=== PATIENT | male | born 1945 | race Caucasian/White ===

== ENCOUNTER 2017-03-06 00:16 | Emergency (ER) | payer BC ==
[~2017-03-06] VITALS: Ht 162.6 cm; Wt 50.0 kg
[~2017-03-06 00:16] MED LIST: CARB200T PO; PRIM250T33 PO
[2017-03-06] MEDS ORDERED: IPRATROPIUM BROMIDE (0.02%) 0.5MG/2.5ML NEB HHN STA (01:20)
[2017-03-06] MEDS ORDERED: SODIUM CHLORIDE 0.9% 1,000 ML IV ONE (01:20)
[2017-03-06] MEDS ORDERED: METHYLPREDNISOLONE SOD SUCC 125 MG/2 ML VIAL IV STA (01:20)
[2017-03-06] MEDS ORDERED: ALBUTEROL (0.083%) 2.5MG/3ML NEB HHN SCH (01:30)
[2017-03-06 01:36] LABS: BASOPHILS % 0.5 % (0.0-2.0); EOSINOPHILS % 1.8 % (0.0-5.0); HEMATOCRIT. 36.5 % (42.0-52.0); HEMOGLOBIN. 12.7 g/dL (14.0-18.0); LYMPHOCYTES % 26.7 % (20.0-50.0); MEAN CORPUSCULAR HEMOGLOBIN 31.9 pg (28.0-32.0); MEAN CORPUSCULAR VOLUME 91.5 fL (80.0-94.0); MEAN PLATELET VOLUME 7.7 fl (7.4-10.4); MONOCYTES % 8.9 % (2.0-8.0); NEUTROPHILS % 62.1 % (40.0-76.0); PLATELET 152 x1000/uL (130-400); RED BLOOD CELL COUNT 3.99 mill/uL (4.7-6.1); RED CELL DISTRIBUTION WIDTH 15.1 % (11.6-14.6)
[2017-03-06 01:51] LABS: CARBON DIOXIDE 28 mEq/L (21-32); CHLORIDE 105 mEq/L (98-107); TROPONIN I 0.02 ng/mL (0.00-0.04)
[2017-03-06 03:55] VITALS: BP 122/75
== END 2017-03-06 04:05 | disposition home or self-care (01) ==
LOC: ER 00:16
DX: J44.9 Chronic obstructive pulmonary disease, unspecified (principal); I10 Essential (primary) hypertension; R06.00 Dyspnea, unspecified
CPT/HCPCS: 36415; 71010; 80053; 83880; 84484; 85025; 93005; 94640; 96361; 96374; 99285; J2930; J7030; J7611; Z7610

== ENCOUNTER 2017-05-11 16:14 | Emergency (ER) | payer BC ==
[~2017-05-11] VITALS: Ht 167.6 cm; Wt 59.0 kg
[2017-05-11] MEDS ORDERED: SODIUM CHLORIDE 0.9% 1,000 ML IV ONE (17:17)
[2017-05-11] MEDS ORDERED: KETOROLAC 30MG/ML VIAL IV STA (17:17)
[2017-05-11 18:13] LABS: BASOPHILS % 0.5 % (0.0-2.0); EOSINOPHILS % 2.1 % (0.0-5.0); HEMATOCRIT. 41.4 % (42.0-52.0); LYMPHOCYTES % 12.3 % (20.0-50.0); MEAN CORPUSCULAR VOLUME 91.8 fL (80.0-94.0); MEAN PLATELET VOLUME 8.5 fl (7.4-10.4); MONOCYTES % 9.2 % (2.0-8.0); NEUTROPHILS % 75.9 % (40.0-76.0); PLATELET 209 x1000/uL (130-400); RED BLOOD CELL COUNT 4.51 mill/uL (4.7-6.1); RED CELL DISTRIBUTION WIDTH 14.7 % (11.6-14.6)
[2017-05-11 18:18] LABS: CHLORIDE 98 mEq/L (98-107)
[2017-05-11 18:20] LABS: INR 1.1; PROTHROMBIN TIME 11.2 sec (9.4-11.6)
[2017-05-11 18:24] VITALS: BP 134/67
[2017-05-11 18:26] LABS: CARBON DIOXIDE 33 mEq/L (21-32)
== END 2017-05-11 21:02 | disposition home or self-care (01) ==
LOC: ER 16:14
DX: R10.9 Unspecified abdominal pain (principal); J44.9 Chronic obstructive pulmonary disease, unspecified; R56.9 Unspecified convulsions; J98.11 Atelectasis; I10 Essential (primary) hypertension
CPT/HCPCS: 36415; 71010; 74176; 80053; 83690; 85025; 85610; 93005; 96361; 96374; 99285; J1885; J7030; Z7610

== ENCOUNTER 2017-07-20 08:36 | Emergency (ER) | payer BC ==
[~2017-07-20] VITALS: Ht 172.7 cm; Wt 55.5 kg
[2017-07-20] MEDS ORDERED: ONDANSETRON HCL 4MG/2ML VIAL IV STA (09:10)
[2017-07-20] MEDS ORDERED: SODIUM CHLORIDE 0.9% 500 ML IV ONE (09:10)
[2017-07-20] MEDS ORDERED: MORPHINE SULFATE 4 MG/ML CPJ (NOT FOR IM USE) IV STA (09:10)
[2017-07-20] MEDS ORDERED: MORPHINE SULFATE 10 MG/ML CPJ IV STA (09:18)
[2017-07-20 09:19] LABS: BASOPHILS % 0.8 % (0.0-2.0); HEMATOCRIT. 40.5 % (42.0-52.0); HEMOGLOBIN. 13.9 g/dL (14.0-18.0); LYMPHOCYTES % 21.1 % (20.0-50.0); MEAN CORPUSCULAR VOLUME 92.9 fL (80.0-94.0); MEAN PLATELET VOLUME 8.3 fl (7.4-10.4); MONOCYTES % 11.3 % (2.0-8.0); NEUTROPHILS % 63.8 % (40.0-76.0); PLATELET 236 x1000/uL (130-400); RED BLOOD CELL COUNT 4.36 mill/uL (4.7-6.1); RED CELL DISTRIBUTION WIDTH 14.5 % (11.6-14.6)
[2017-07-20 09:35] LABS: INR 1.1; PROTHROMBIN TIME 11.3 sec (9.4-11.6)
[2017-07-20 09:39] LABS: CARBON DIOXIDE 32 mEq/L (21-32); CHLORIDE 99 mEq/L (98-107); TROPONIN I < 0.02 ng/mL (0.00-0.04)
[2017-07-20] MEDS ORDERED: ALBUTEROL (0.083%) 2.5MG/3ML NEB HHN STA (10:44)
[2017-07-20] MEDS ORDERED: IPRATROPIUM BROMIDE (0.02%) 0.5MG/2.5ML NEB HHN STA (10:44)
[2017-07-20] MEDS ORDERED: METHYLPREDNISOLONE SOD SUCC 125 MG/2 ML VIAL IV STA (10:44)
[2017-07-20] MEDS ORDERED: IOHEXOL-300 100 ML BOTTLE ONE (13:00)
[2017-07-20 14:05] VITALS: BP 107/59
== END 2017-07-20 14:13 | disposition home or self-care (01) ==
LOC: ER 08:52
DX: J43.9 Emphysema, unspecified (principal); R10.33 Periumbilical pain; G40.909 Epilepsy, unspecified, not intractable, without status epilepticus; I44.7 Left bundle-branch block, unspecified; Z99.81 Dependence on supplemental oxygen
CPT/HCPCS: 36415; 71010; 74177; 80053; 83690; 83880; 84484; 85025; 85610; 93005; 94644; 96361; 96374; 96375; 99285; J2270; J2405; J2930; J7040; J7611; Q9967; Z7610; J7030

== ENCOUNTER 2017-09-28 13:47 | Emergency (ER) | payer BC, MEDICAID ==
[~2017-09-28] VITALS: Ht 167.6 cm; Wt 55.5 kg
[2017-09-28] MEDS ORDERED: IPRATROPIUM/ALBUTEROL 0.5-3(2.5)MG/3ML NEB HHN ONE (15:30)
[2017-09-28 15:41] LABS: CHLORIDE 101 mEq/L (98-107)
[2017-09-28 15:43] LABS: INR 1.1; PARTIAL THROMBOPLASTIN TIME 28.2 sec (23.4-31.0); PROTHROMBIN TIME 11.3 sec (9.4-11.6)
[2017-09-28 15:44] LABS: BASOPHILS % 0.7 % (0.0-2.0); EOSINOPHILS % 1.4 % (0.0-5.0); HEMATOCRIT. 43.6 % (42.0-52.0); HEMOGLOBIN. 14.6 g/dL (14.0-18.0); LYMPHOCYTES % 19.1 % (20.0-50.0); MEAN CORPUSCULAR HEMOGLOBIN 30.6 pg (28.0-32.0); MEAN CORPUSCULAR VOLUME 91.3 fL (80.0-94.0); MONOCYTES % 11.5 % (2.0-8.0); NEUTROPHILS % 67.3 % (40.0-76.0); PLATELET 198 x1000/uL (130-400); RED BLOOD CELL COUNT 4.78 mill/uL (4.7-6.1); RED CELL DISTRIBUTION WIDTH 14.8 % (11.6-14.6)
[2017-09-28 15:51] LABS: CARBON DIOXIDE 30 mEq/L (21-32)
[2017-09-28 15:57] LABS: CLARITY URINE CLEAR (CLEAR); COLOR URINE DARK YELLOW (YELLOW); KETONES URINE 1+ (NEGATIVE); LEUKOCYTE ESTERASE URINE 1+ (NEGATIVE); NITRITE URINE NEGATIVE (NEGATIVE); OCCULT BLOOD URINE NEGATIVE (NEGATIVE); PROTEIN URINE 1+ (NEGATIVE); SPECIFIC GRAVITY URINE 1.026 (1.005-1.030); UROBILINOGEN URINE 0.2 E.U./dL (0.2-1.0)
[2017-09-28 17:40] VITALS: BP 117/89
== END 2017-09-28 17:40 | disposition home or self-care (01) ==
LOC: ER 15:20
DX: R10.9 Unspecified abdominal pain (principal); J44.1 Chronic obstructive pulmonary disease with (acute) exacerbation; R56.9 Unspecified convulsions; Z87.891 Personal history of nicotine dependence
CPT/HCPCS: 36415; 80053; 81001; 83690; 85025; 85610; 85730; 93005; 94640; 99285; J7620

== ENCOUNTER 2017-11-23 16:28 | Emergency (ER) | payer MEDICAID ==
[~2017-11-23] VITALS: Ht 165.1 cm; Wt 68.0 kg
[~2017-11-23 16:28] MED LIST changes: +ALBU6.7H INH; +DOCU250C14 PO; +P20 PO; +PULM50 HHN
[2017-11-23] MEDS ORDERED: METHYLPREDNISOLONE SOD SUCC 125 MG/2 ML VIAL IV STA (16:44)
[2017-11-23] MEDS ORDERED: IPRATROPIUM BROMIDE (0.02%) 0.5MG/2.5ML NEB HHN STA (16:44)
[2017-11-23] MEDS ORDERED: ALBUTEROL (0.083%) 2.5MG/3ML NEB HHN STA (16:44)
[2017-11-23] MEDS ORDERED: MAGNESIUM 2 G PREMIX 50 ML IV ONE (16:45)
[2017-11-23 17:14] LABS: BASOPHILS % 0.7 % (0.0-2.0); HEMATOCRIT. 41.6 % (42.0-52.0); HEMOGLOBIN. 14.2 g/dL (14.0-18.0); LYMPHOCYTES % 44.3 % (20.0-50.0); MEAN CORPUSCULAR HEMOGLOBIN 31.5 pg (28.0-32.0); MEAN PLATELET VOLUME 8.1 fl (7.4-10.4); MONOCYTES % 8.9 % (2.0-8.0); NEUTROPHILS % 40.1 % (40.0-76.0); PLATELET 197 x1000/uL (130-400); RED BLOOD CELL COUNT 4.52 mill/uL (4.7-6.1); RED CELL DISTRIBUTION WIDTH 15.2 % (11.6-14.6)
[2017-11-23 17:23] LABS: CHLORIDE 104 mEq/L (98-107)
[2017-11-23 17:24] LABS: PARTIAL THROMBOPLASTIN TIME 25.2 sec (23.4-31.0); PROTHROMBIN TIME 10.8 sec (9.4-11.6)
[2017-11-23] MEDS ORDERED: PREDNISONE 20MG TABLET PO ONE (19:15)
[2017-11-23 19:45] VITALS: BP 122/59
== END 2017-11-23 19:45 | disposition home or self-care (01) ==
LOC: ER 16:28
DX: J44.1 Chronic obstructive pulmonary disease with (acute) exacerbation (principal); R03.0 Elevated blood-pressure reading, without diagnosis of hypertension; I44.7 Left bundle-branch block, unspecified; D64.9 Anemia, unspecified; G40.909 Epilepsy, unspecified, not intractable, without status epilepticus; Z87.01 Personal history of pneumonia (recurrent); Z79.899 Other long term (current) drug therapy
CPT/HCPCS: 36415; 71045; 80048; 83880; 84484; 85025; 85610; 85730; 93005; 94640; 96365; 96375; 99285; J2930; J3475; J7512; J7611

== ENCOUNTER 2017-12-26 20:21 | Inpatient (IN) | payer MEDICAID ==
[~2017-12-26] VITALS: Ht 167.6 cm; Wt 56.2 kg
[2017-12-26] MEDS ORDERED: METHYLPREDNISOLONE SOD SUCC 125 MG/2 ML VIAL IV ONE (20:45)
[2017-12-26] MEDS ORDERED: IPRATROPIUM/ALBUTEROL 0.5-3(2.5)MG/3ML NEB HHN ONE (20:45)
[2017-12-26 21:29] LABS: BASOPHILS % 0.6 % (0.0-2.0); EOSINOPHILS % 8.6 % (0.0-5.0); HEMATOCRIT. 42.2 % (42.0-52.0); HEMOGLOBIN. 14.5 g/dL (14.0-18.0); LYMPHOCYTES % 41.9 % (20.0-50.0); MEAN CORPUSCULAR HEMOGLOBIN 31.6 pg (28.0-32.0); MEAN CORPUSCULAR VOLUME 91.9 fL (80.0-94.0); MEAN PLATELET VOLUME 8.6 fl (7.4-10.4); MONOCYTES % 10.8 % (2.0-8.0); NEUTROPHILS % 38.1 % (40.0-76.0); PLATELET 212 x1000/uL (130-400); RED BLOOD CELL COUNT 4.59 mill/uL (4.7-6.1)
[2017-12-26 21:33] LABS: BG BASE EXCESS 1.1 mmol/L (-2.0-2.0); BG BILEVEL POS AIRWAY PRESSURE 15/5; BG CARBOXYHEMOGLOBIN 0.6 % (0.5-1.5); BG DEOXYHEMOGLOBIN 0.9 % (0.0-5.0); BG FRACTION INSPIRED OXYGEN 50; BG HCO3 ACT 28.4 mmol/L (22.0-26.0); BG METHEMOGLOBIN 0.4 % (0.0-1.5); BG OXYHEMOGLOBIN 98.1 % (94.0-97.0); BG PCO2 55.7 mmHg (35.0-45.0); BG PH 7.325 (7.350-7.450); BG PO2 190.1 mmHg (75.0-100.0); BG SAMPLE SITE RIGHT BRACHIAL; BG TOTAL HEMOGLOBIN 15.3 g/dL (12.0-18.0); BG VENT MODE MASK - BIPAP
[2017-12-26 21:34] LABS: CHLORIDE 104 mEq/L (98-107)
[2017-12-26 21:35] LABS: PROTHROMBIN TIME 10.7 sec (9.4-11.6)
[2017-12-26] MEDS ORDERED: MAGNESIUM/ALUMINUM HYDROXIDE/SIMETHICONE 30ML UDC PO PRN (23:45)
[2017-12-26] MEDS ORDERED: CLONIDINE 0.1MG TABLET PO PRN (23:45)
[2017-12-26] MEDS ORDERED: ONDANSETRON HCL 4MG/2ML VIAL IV PRN (23:45)
[2017-12-26] MEDS ORDERED: DOCUSATE SODIUM 100MG CAPSULE PO PRN (23:45)
[2017-12-27] VITALS: BP 135/70
[2017-12-27 00:17] LABS: CHLORIDE 104 mEq/L (98-107)
[2017-12-27 04:00] VITALS: BP 114/66
[2017-12-27] MEDS: METHYLPREDNISOLONE SOD SUCC 40 MG/ML VIAL IV SCH ×3 (06:22→21:10)
[2017-12-27] MEDS: OMEPRAZOLE 20MG CAPSULE EXTENDED RELEASE PO SCH (06:22)
[2017-12-27 06:43] LABS: BASOPHILS % 0.4 % (0.0-2.0); EOSINOPHILS % 0.1 % (0.0-5.0); HEMATOCRIT. 40.7 % (42.0-52.0); HEMOGLOBIN. 13.7 g/dL (14.0-18.0); LYMPHOCYTES % 18.3 % (20.0-50.0); MEAN CORPUSCULAR HEMOGLOBIN 31.1 pg (28.0-32.0); MEAN CORPUSCULAR VOLUME 92.2 fL (80.0-94.0); MEAN PLATELET VOLUME 8.7 fl (7.4-10.4); MONOCYTES % 4.2 % (2.0-8.0); PLATELET 204 x1000/uL (130-400); RED BLOOD CELL COUNT 4.41 mill/uL (4.7-6.1); RED CELL DISTRIBUTION WIDTH 15.1 % (11.6-14.6)
[2017-12-27] MEDS: ACETAMINOPHEN 325MG TABLET PO PRN ×3 (06:43→16:44)
[2017-12-27 07:47] LABS: LDL CHOLESTEROL 174 mg/dL (5-100)
[2017-12-27 07:48] LABS: BG BASE EXCESS 1.6 mmol/L (-2.0-2.0); BG CARBOXYHEMOGLOBIN 0.3 % (0.5-1.5); BG DEOXYHEMOGLOBIN 2.9 % (0.0-5.0); BG FRACTION INSPIRED OXYGEN 28; BG HCO3 ACT 28.2 mmol/L (22.0-26.0); BG METHEMOGLOBIN 0.2 % (0.0-1.5); BG OXYHEMOGLOBIN 96.6 % (94.0-97.0); BG PH 7.352 (7.350-7.450); BG PO2 99.5 mmHg (75.0-100.0); BG SAMPLE SITE RIGHT RADIAL; BG TOTAL HEMOGLOBIN 14.8 g/dL (12.0-18.0); BG VENT MODE NASAL CANNULA
[2017-12-27 07:49] LABS: CREATINE KINASE 40 IU/L (39-308); HDL CHOLESTEROL 54 mg/dL (40-59)
[2017-12-27 07:50] LABS: CREATINE KINASE MB FRACTION 1.3 ng/mL (0.5-3.6)
[2017-12-27 08:00] VITALS: BP 130/62
[2017-12-27] MEDS: IPRATROPIUM/ALBUTEROL 0.5-3(2.5)MG/3ML NEB INH PRN ×2 (09:17→20:32)
[2017-12-27] MEDS: BUDESONIDE 0.5MG/2ML NEB HHN SCH ×2 (09:17→20:32)
[2017-12-27 11:48] LABS: *BENZODIAZEPINES SCREEN URINE NEGATIVE (NEGATIVE); *COCAINE SCREEN URINE NEGATIVE (NEGATIVE); METHADONE URINE SCREEN NEGATIVE (NEGATIVE)
[2017-12-27 11:49] LABS: *AMPHETAMINES SCREEN URINE NEGATIVE (NEGATIVE); *BARBITURATES SCREEN URINE PRESUMTIVE POSITIVE (NEGATIVE); CANNABINOID URINE SCREEN NEGATIVE (NEGATIVE); OPIATES URINE SCREEN NEGATIVE (NEGATIVE); PHENCYCLIDINE URINE SCREEN NEGATIVE (NEGATIVE)
[2017-12-27 12:00] VITALS: BP 104/56
[2017-12-27 16:00] VITALS: BP 118/56
[2017-12-27 16:55] LABS: CREATINE KINASE 37 IU/L (39-308)
[2017-12-27 16:56] LABS: CREATINE KINASE MB FRACTION 1.1 ng/mL (0.5-3.6)
[2017-12-27 20:00] VITALS: BP 129/51
[2017-12-27] MEDS: ATORVASTATIN CALCIUM 20MG TABLET PO SCH (21:10)
[2017-12-27] MEDS ORDERED: CARBAMAZEPINE 100MG TABLET CHEW PO SCH (21:42)
[2017-12-27] MEDS ORDERED: CARBAMAZEPINE 200MG TABLET PO SCH (22:28)
[2017-12-27] MEDS: PRIMIDONE 250 MG TABLET PO SCH (22:41)
[2017-12-28] VITALS: BP 121/51
[2017-12-28 04:00] VITALS: BP 111/52
[2017-12-28] MEDS: METHYLPREDNISOLONE SOD SUCC 40 MG/ML VIAL IV SCH ×2 (06:20→13:19)
[2017-12-28] MEDS: OMEPRAZOLE 20MG CAPSULE EXTENDED RELEASE PO SCH (06:20)
[2017-12-28 07:22] LABS: CHLORIDE 103 mEq/L (98-107)
[2017-12-28 07:29] LABS: BASOPHILS % 0.1 % (0.0-2.0); EOSINOPHILS % 0.1 % (0.0-5.0); HEMATOCRIT. 37.6 % (42.0-52.0); HEMOGLOBIN. 13.1 g/dL (14.0-18.0); LYMPHOCYTES % 16.9 % (20.0-50.0); MEAN CORPUSCULAR HEMOGLOBIN 32.3 pg (28.0-32.0); MEAN CORPUSCULAR VOLUME 92.3 fL (80.0-94.0); NEUTROPHILS % 76.9 % (40.0-76.0); PLATELET 198 x1000/uL (130-400); RED BLOOD CELL COUNT 4.07 mill/uL (4.7-6.1); RED CELL DISTRIBUTION WIDTH 15.3 % (11.6-14.6)
[2017-12-28 08:00] VITALS: BP 104/55
[2017-12-28] MEDS: BUDESONIDE 0.5MG/2ML NEB HHN SCH ×2 (08:17→19:58)
[2017-12-28] MEDS: IPRATROPIUM/ALBUTEROL 0.5-3(2.5)MG/3ML NEB INH PRN (08:17)
[2017-12-28] MEDS: ENOXAPARIN 40MG/0.4ML SYR SUBCUT SCH (08:21)
[2017-12-28 12:00] VITALS: BP 107/42
[2017-12-28 16:00] VITALS: BP 131/56
[2017-12-28] MEDS: PREDNISONE 20MG TABLET PO SCH (16:41)
[2017-12-28] MEDS: IPRATROPIUM/ALBUTEROL 0.5-3(2.5)MG/3ML NEB HHN SCH (19:57)
[2017-12-28 20:00] VITALS: BP 117/50
[2017-12-28] MEDS: PRIMIDONE 250 MG TABLET PO SCH (20:45)
[2017-12-28] MEDS: ATORVASTATIN CALCIUM 20MG TABLET PO SCH (20:45)
[2017-12-28] MEDS: ACETAMINOPHEN 325MG TABLET PO PRN (20:45)
[2017-12-28] MEDS ORDERED: PRIMIDONE 250 MG TABLET PO SCH (21:00)
[2017-12-28] MEDS ORDERED: CARBAMAZEPINE 200MG TABLET PO SCH ×2 (21:00)
[2017-12-29] VITALS (9 sets, daily range): BP systolic 108–127; BP diastolic 50–68
[2017-12-29] MEDS: IPRATROPIUM/ALBUTEROL 0.5-3(2.5)MG/3ML NEB HHN SCH ×3 (01:22→13:32)
[2017-12-29] MEDS: OMEPRAZOLE 20MG CAPSULE EXTENDED RELEASE PO SCH (06:10)
[2017-12-29 06:14] LABS: BASOPHILS % 0.3 % (0.0-2.0); EOSINOPHILS % 0.5 % (0.0-5.0); HEMATOCRIT. 37.4 % (42.0-52.0); HEMOGLOBIN. 12.6 g/dL (14.0-18.0); LYMPHOCYTES % 22.2 % (20.0-50.0); MEAN CORPUSCULAR HEMOGLOBIN 31.1 pg (28.0-32.0); MEAN CORPUSCULAR VOLUME 91.9 fL (80.0-94.0); MEAN PLATELET VOLUME 8.6 fl (7.4-10.4); MONOCYTES % 9.3 % (2.0-8.0); NEUTROPHILS % 67.7 % (40.0-76.0); PLATELET 195 x1000/uL (130-400); RED BLOOD CELL COUNT 4.06 mill/uL (4.7-6.1); RED CELL DISTRIBUTION WIDTH 15.4 % (11.6-14.6)
[2017-12-29 06:36] LABS: CHLORIDE 102 mEq/L (98-107)
[2017-12-29 06:45] LABS: PHOSPHORUS 3.1 mg/dL (2.5-4.9)
[2017-12-29] MEDS: BUDESONIDE 0.5MG/2ML NEB HHN SCH (07:47)
[2017-12-29] MEDS: ENOXAPARIN 40MG/0.4ML SYR SUBCUT SCH (09:10)
[2017-12-29] MEDS: PREDNISONE 20MG TABLET PO SCH ×2 (09:11→18:01)
[2017-12-30] MEDS ORDERED: FAMOTIDINE 20MG TABLET PO SCH (09:00)
== END 2017-12-29 19:35 | disposition home or self-care (01) | DRG 133 ==
LOC: ER 22:46 → 8WST 22:47 → ENRESERV 23:16
PROVIDERS: ADMIT Internal Medicine; ATTEND Internal Medicine
PROC: 5A09357 Assistance with Respiratory Ventilation, Less than 24 Consecutive Hours, Continuous Positive Airway Pressure (ICD-10-PCS; principal; 2017-12-26)
DX: J96.00 Acute respiratory failure, unspecified whether with hypoxia or hypercapnia (principal); E44.0 Moderate protein-calorie malnutrition; Z99.81 Dependence on supplemental oxygen; J44.1 Chronic obstructive pulmonary disease with (acute) exacerbation; E78.5 Hyperlipidemia, unspecified; G40.909 Epilepsy, unspecified, not intractable, without status epilepticus; K21.9 Gastro-esophageal reflux disease without esophagitis; Z83.3 Family history of diabetes mellitus; Z87.891 Personal history of nicotine dependence; Z68.20 Body mass index [BMI] 20.0-20.9, adult; Z79.899 Other long term (current) drug therapy
CPT/HCPCS: 36415; 36600; 71045; 80048; 80053; 80061; 80305; 82375; 82550; 82553; 82805; 83690; 83735; 84100; 84443; 84484; 85025; 85610; 85730; 87070; 93005; 93970; 94640; 94660; 96374; 97162; 97535; 99285; J1650; J2920; J2930; J7512; J7620; J7626

== ENCOUNTER 2018-07-11 12:19 | Inpatient (IN) | payer MEDICAID ==
[~2018-07-11] VITALS: Ht 182.9 cm; Wt 52.6 kg
[2018-07-11] MEDS: BUDESONIDE 0.5MG/2ML NEB HHN SCH (08:15)
[2018-07-11] MEDS ORDERED: METHYLPREDNISOLONE SOD SUCC 125 MG/2 ML VIAL IV STA (13:24)
[2018-07-11] MEDS ORDERED: IPRATROPIUM BROMIDE (0.02%) 0.5MG/2.5ML NEB HHN STA (13:24)
[2018-07-11] MEDS: ALBUTEROL (0.083%) 2.5MG/3ML NEB HHN SCH (13:45)
[2018-07-11 14:00] LABS: BASOPHILS % 0.7 % (0.0-2.0); EOSINOPHILS % 1.9 % (0.0-5.0); LYMPHOCYTES % 17.6 % (20.0-50.0); MEAN CORPUSCULAR HEMOGLOBIN 32.2 pg (28.0-32.0); MEAN CORPUSCULAR VOLUME 94.3 fL (80.0-94.0); MEAN PLATELET VOLUME 9.1 fl (7.4-10.4); MONOCYTES % 9.4 % (2.0-8.0); NEUTROPHILS % 70.4 % (40.0-76.0); PLATELET 375 x1000/uL (130-400); RED BLOOD CELL COUNT 4.67 mill/uL (4.7-6.1)
[2018-07-11 14:04] LABS: CHLORIDE 94 mEq/L (98-107); PROTHROMBIN TIME 10.3 sec (9.1-11.1)
[2018-07-11] MEDS ORDERED: CEFTRIAXONE 2 G PREMIX 50 ML IV ONE (14:45)
[2018-07-11] MEDS ORDERED: AZITHROMYCIN 500 MG in DEXT 5% WATER 250 ML IV ONE (14:45)
[2018-07-11] MEDS ORDERED: BENZONATATE 100MG CAPSULE PO PRN (15:00)
[2018-07-11] MEDS ORDERED: IPRATROPIUM/ALBUTEROL 0.5-3(2.5)MG/3ML NEB HHN PRN (15:00)
[2018-07-11 16:00] VITALS: BP 103/57
[2018-07-11 16:21] VITALS: BP 99/40
[2018-07-11 18:00] VITALS: BP 119/58
[2018-07-11] MEDS ORDERED: LEVOFLOXACIN 750MG PREMIX 150 ML IV SCH (18:00)
[2018-07-11] MEDS: MONTELUKAST SODIUM 10MG TABLET PO SCH (18:46)
[2018-07-11 20:00] VITALS: BP 96/57
[2018-07-11] MEDS: IPRATROPIUM/ALBUTEROL 0.5-3(2.5)MG/3ML NEB HHN SCH (20:00)
[2018-07-12] VITALS: BP 99/52
[2018-07-12 04:00] VITALS: BP 111/59
[2018-07-12 07:56] LABS: BASOPHILS % 0.3 % (0.0-2.0); EOSINOPHILS % 1.6 % (0.0-5.0); HEMATOCRIT. 36.1 % (42.0-52.0); LYMPHOCYTES % 19.3 % (20.0-50.0); MEAN CORPUSCULAR HEMOGLOBIN 31.3 pg (28.0-32.0); MEAN PLATELET VOLUME 8.7 fl (7.4-10.4); MONOCYTES % 10.3 % (2.0-8.0); NEUTROPHILS % 68.5 % (40.0-76.0); PLATELET 314 x1000/uL (130-400); RED BLOOD CELL COUNT 3.84 mill/uL (4.7-6.1); RED CELL DISTRIBUTION WIDTH 14.9 % (11.6-14.6)
[2018-07-12 08:00] VITALS: BP 112/50
[2018-07-12 10:34] LABS: CHLORIDE 100 mEq/L (98-107)
[2018-07-12] MEDS: IPRATROPIUM/ALBUTEROL 0.5-3(2.5)MG/3ML NEB HHN SCH ×4 (11:15→23:58)
[2018-07-12 12:00] VITALS: BP 107/56
[2018-07-12] MEDS ORDERED: DEXTROSE 50% WATER 50ML SYRINGE IV PRN (13:00)
[2018-07-12 16:00] VITALS: BP 103/43
[2018-07-12] MEDS: INSULIN LISPRO 100 UNITS/ML SUBCUT SCH ×2 (17:15→21:00)
[2018-07-12] MEDS: MONTELUKAST SODIUM 10MG TABLET PO SCH (17:19)
[2018-07-12] MEDS: BLOOD SUGAR DIAGNOSTIC STRIP TEST SCH ×2 (17:25→21:32)
[2018-07-12] MEDS ORDERED: SODIUM CHLORIDE 10% FOR INH 15ML VIAL NEB INH SCH (18:00)
[2018-07-12] MEDS: BUDESONIDE 0.5MG/2ML NEB HHN SCH (19:41)
[2018-07-12 20:00] VITALS: BP 105/56
[2018-07-12] MEDS ORDERED: FAMOTIDINE 20MG TABLET PO SCH (21:00)
[2018-07-12] MEDS: PRIMIDONE 250 MG TABLET PO SCH (21:33)
[2018-07-12] MEDS: ATORVASTATIN CALCIUM 40MG TABLET PO SCH (21:33)
[2018-07-12] MEDS: CARBAMAZEPINE 200MG TABLET PO SCH (21:34)
[2018-07-12] MEDS: ACETYLCYSTEINE 100MG/ML 10% VIAL 4ML INH SCH (23:59)
[2018-07-13 00:59] VITALS: BP 107/48
[2018-07-13 04:00] VITALS: BP 113/50
[2018-07-13] MEDS: IPRATROPIUM/ALBUTEROL 0.5-3(2.5)MG/3ML NEB HHN SCH ×5 (04:06→20:07)
[2018-07-13] MEDS: BLOOD SUGAR DIAGNOSTIC STRIP TEST SCH ×4 (06:11→20:39)
[2018-07-13] MEDS: INSULIN LISPRO 100 UNITS/ML SUBCUT SCH ×4 (06:11→20:39)
[2018-07-13 06:16] LABS: CHLORIDE 100 mEq/L (98-107)
[2018-07-13 06:24] LABS: BASOPHILS % 0.5 % (0.0-2.0); HEMATOCRIT. 35.7 % (42.0-52.0); HEMOGLOBIN. 12.2 g/dL (14.0-18.0); LYMPHOCYTES % 15.4 % (20.0-50.0); MEAN CORPUSCULAR HEMOGLOBIN 31.9 pg (28.0-32.0); MEAN CORPUSCULAR VOLUME 93.5 fL (80.0-94.0); MEAN PLATELET VOLUME 8.6 fl (7.4-10.4); MONOCYTES % 9.1 % (2.0-8.0); PLATELET 333 x1000/uL (130-400); RED BLOOD CELL COUNT 3.82 mill/uL (4.7-6.1); RED CELL DISTRIBUTION WIDTH 14.8 % (11.6-14.6)
[2018-07-13 08:00] VITALS: BP 116/51
[2018-07-13] MEDS: BUDESONIDE 0.5MG/2ML NEB HHN SCH ×2 (09:01→20:07)
[2018-07-13] MEDS: ACETYLCYSTEINE 100MG/ML 10% VIAL 4ML INH SCH ×2 (09:02→16:21)
[2018-07-13 12:00] VITALS: BP 119/63
[2018-07-13] MEDS: CEFTRIAXONE 1 G PREMIX 50 ML IV SCH (15:13)
[2018-07-13 16:00] VITALS: BP 112/65
[2018-07-13] MEDS: AZITHROMYCIN 500 MG in DEXT 5% WATER 250 ML IV SCH (16:32)
[2018-07-13] MEDS: FAMOTIDINE 20MG TABLET PO SCH (16:32)
[2018-07-13] MEDS: MONTELUKAST SODIUM 10MG TABLET PO SCH (16:32)
[2018-07-13 20:00] VITALS: BP 101/60
[2018-07-13] MEDS: CARBAMAZEPINE 200MG TABLET PO SCH (20:42)
[2018-07-13] MEDS: GUAIFENESIN 600MG ER TABLET PO SCH (20:42)
[2018-07-13] MEDS: PRIMIDONE 250 MG TABLET PO SCH (20:43)
[2018-07-13] MEDS: ATORVASTATIN CALCIUM 40MG TABLET PO SCH (20:43)
[2018-07-14] VITALS: BP 110/52
[2018-07-14] MEDS: ACETYLCYSTEINE 100MG/ML 10% VIAL 4ML INH SCH ×3 (00:14→16:28)
[2018-07-14] MEDS: IPRATROPIUM/ALBUTEROL 0.5-3(2.5)MG/3ML NEB HHN SCH ×6 (00:15→20:37)
[2018-07-14 04:00] VITALS: BP 98/52
[2018-07-14] MEDS: BLOOD SUGAR DIAGNOSTIC STRIP TEST SCH ×4 (06:38→21:00)
[2018-07-14] MEDS: INSULIN LISPRO 100 UNITS/ML SUBCUT SCH ×4 (06:38→21:00)
[2018-07-14 07:47] LABS: BASOPHILS % 0.7 % (0.0-2.0); EOSINOPHILS % 3.4 % (0.0-5.0); HEMATOCRIT. 38.3 % (42.0-52.0); HEMOGLOBIN. 13.1 g/dL (14.0-18.0); LYMPHOCYTES % 16.8 % (20.0-50.0); MEAN CORPUSCULAR HEMOGLOBIN 32.2 pg (28.0-32.0); MEAN PLATELET VOLUME 8.5 fl (7.4-10.4); MONOCYTES % 11.1 % (2.0-8.0); PLATELET 360 x1000/uL (130-400); RED BLOOD CELL COUNT 4.08 mill/uL (4.7-6.1); RED CELL DISTRIBUTION WIDTH 14.6 % (11.6-14.6)
[2018-07-14 08:13] VITALS: BP 95/50
[2018-07-14 08:14] LABS: CHLORIDE 97 mEq/L (98-107)
[2018-07-14] MEDS: BUDESONIDE 0.5MG/2ML NEB HHN SCH ×2 (08:42→20:36)
[2018-07-14] MEDS: FAMOTIDINE 20MG TABLET PO SCH ×2 (09:33→17:55)
[2018-07-14] MEDS: GUAIFENESIN 600MG ER TABLET PO SCH ×2 (09:33→20:59)
[2018-07-14 12:42] VITALS: BP 101/50
[2018-07-14] MEDS: CEFTRIAXONE 1 G PREMIX 50 ML IV SCH (16:37)
[2018-07-14] MEDS: AZITHROMYCIN 500 MG in DEXT 5% WATER 250 ML IV SCH (17:18)
[2018-07-14 17:24] VITALS: BP 106/52
[2018-07-14] MEDS: MONTELUKAST SODIUM 10MG TABLET PO SCH (17:55)
[2018-07-14 20:00] VITALS: BP 110/59
[2018-07-14] MEDS: PRIMIDONE 250 MG TABLET PO SCH (20:59)
[2018-07-14] MEDS: ATORVASTATIN CALCIUM 40MG TABLET PO SCH (20:59)
[2018-07-14] MEDS: CARBAMAZEPINE 200MG TABLET PO SCH (20:59)
[2018-07-15] VITALS (7 sets, daily range): BP systolic 96–122; BP diastolic 53–59
[2018-07-15] MEDS: IPRATROPIUM/ALBUTEROL 0.5-3(2.5)MG/3ML NEB HHN SCH ×5 (00:20→17:02)
[2018-07-15] MEDS: ACETYLCYSTEINE 100MG/ML 10% VIAL 4ML INH SCH ×2 (00:20→09:29)
[2018-07-15] MEDS: BLOOD SUGAR DIAGNOSTIC STRIP TEST SCH ×3 (06:39→18:04)
[2018-07-15] MEDS: INSULIN LISPRO 100 UNITS/ML SUBCUT SCH ×3 (06:39→17:15)
[2018-07-15] MEDS: BUDESONIDE 0.5MG/2ML NEB HHN SCH (09:32)
[2018-07-15] MEDS: FAMOTIDINE 20MG TABLET PO SCH ×2 (10:53→18:58)
[2018-07-15] MEDS: GUAIFENESIN 600MG ER TABLET PO SCH (10:53)
[2018-07-15] MEDS ORDERED: IOHEXOL-350 100 ML BOTTLE ONE (12:25)
[2018-07-15] MEDS: CEFTRIAXONE 1 G PREMIX 50 ML IV SCH (15:46)
[2018-07-15] MEDS: AZITHROMYCIN 500 MG in DEXT 5% WATER 250 ML IV SCH (16:43)
== END 2018-07-15 20:45 | disposition home or self-care (01) | DRG 720 ==
LOC: ER 13:31 → ENRESERV 14:21 → 5WST 14:44 → EDBEDREQ 14:50
PROVIDERS: ADMIT Internal Medicine; ATTEND Internal Medicine
PROC: 5A19054 Respiratory Ventilation, Single, Nonmechanical (ICD-10-PCS; principal; 2018-07-13)
DX: A41.9 Sepsis, unspecified organism (principal); J96.20 Acute and chronic respiratory failure, unspecified whether with hypoxia or hypercapnia; J84.9 Interstitial pulmonary disease, unspecified; J18.1 Lobar pneumonia, unspecified organism; E87.8 Other disorders of electrolyte and fluid balance, not elsewhere classified; Z99.81 Dependence on supplemental oxygen; E11.9 Type 2 diabetes mellitus without complications; G40.909 Epilepsy, unspecified, not intractable, without status epilepticus; J44.0 Chronic obstructive pulmonary disease with (acute) lower respiratory infection; E78.5 Hyperlipidemia, unspecified; K21.9 Gastro-esophageal reflux disease without esophagitis; Z79.899 Other long term (current) drug therapy; Z83.3 Family history of diabetes mellitus; Z87.01 Personal history of pneumonia (recurrent); Z87.891 Personal history of nicotine dependence
CPT/HCPCS: 36415; 71045; 71275; 80048; 82962; 83605; 83880; 84484; 87070; 87804; 93005; 94640; 96365; 96375; 97162; 97166; 99285; J0456; J0696; J1956; J2930; J7050; J7060; J7131; J7608; J7611; J7620; J7626; Q9967

== ENCOUNTER 2020-12-25 19:02 | Inpatient (IN) | payer BC, MEDICAID ==
[~2020-12-25] VITALS: Ht 165.1 cm; Wt 57.2 kg
[~2020-12-25 19:02] MED LIST changes: -ALBU6.7H INH; +ALBU6.7H11 INH; +ATOR20TA65 MT; +CARB200T6 MT; +FLUT15.844 BOTHNSTRLS; +FLUT1BLS INH; +IBUP-2029 PO; +LORA10TA7 MT; +METO-411 MT; +PEG15DRO5 EACHEYE; -PRIM250T33 PO; +PRIM250T7 PO; +ZAFI20TA13 MT
[2020-12-25] MEDS ORDERED: MAGNESIUM 2 G PREMIX 50 ML IV STA (19:22)
[2020-12-25] MEDS ORDERED: LEVOFLOXACIN 750MG PREMIX 150 ML IV STA (19:22)
[2020-12-25] MEDS ORDERED: METHYLPREDNISOLONE SOD SUCC 125 MG/2 ML VIAL IV STA (19:22)
[2020-12-25] MEDS ORDERED: ALBUTEROL 6.7GM HFA INHALER ORI ONE (19:30)
[2020-12-25] MEDS ORDERED: VANCOMYCIN 750 MG PREMIX 150 ML IV SCH (19:30)
[2020-12-25 19:52] LABS: BASOPHILS % 0.4 % (0.0-2.0); EOSINOPHILS % 2.3 % (0.0-5.0); HEMATOCRIT. 39.9 % (42.0-52.0); HEMOGLOBIN. 13.4 g/dL (14.0-18.0); LYMPHOCYTES % 27.1 % (20.0-50.0); MEAN CORPUSCULAR HEMOGLOBIN 31.7 pg (28.0-32.0); MEAN PLATELET VOLUME 8.4 fl (7.4-10.4); MONOCYTES % 4.4 % (2.0-8.0); NEUTROPHILS % 65.8 % (40.0-76.0); PLATELET 241 x1000/uL (130-400); RED BLOOD CELL COUNT 4.24 mill/uL (4.7-6.1); RED CELL DISTRIBUTION WIDTH 15.4 % (11.6-14.6)
[2020-12-25 20:01] LABS: CHLORIDE 103 mEq/L (98-107)
[2020-12-25 22:34] LABS: BG BASE EXCESS 0.1 mmol/L (-2.0-2.0); BG CARBOXYHEMOGLOBIN 0.2 % (0.5-1.5); BG DEOXYHEMOGLOBIN 0.3 % (0.0-5.0); BG FRACTION INSPIRED OXYGEN 100; BG HCO3 ACT 25.8 mmol/L (22.0-26.0); BG METHEMOGLOBIN 0.3 % (0.0-1.5); BG OXYGEN SATURATION 99.7 % (92.0-98.5); BG OXYHEMOGLOBIN 99.2 % (94.0-97.0); BG PCO2 46.2 mmHg (35.0-45.0); BG PH 7.365 (7.350-7.450); BG SAMPLE SITE RIGHT RADIAL; BG VENT MODE MASK - BIPAP
[2020-12-26] MEDS ORDERED: IOHEXOL-350 100 ML BOTTLE ONE (01:37)
[2020-12-26] MEDS ORDERED: ONDANSETRON HCL 4MG/2ML INJ IV PRN (10:15)
[2020-12-26] MEDS ORDERED: ACETAMINOPHEN 325MG TABLET PO PRN (10:15)
[2020-12-26 10:16] VITALS: BP 121/85
[2020-12-26 10:21] VITALS: BP 121/85
[2020-12-26] MEDS: METHYLPREDNISOLONE SOD SUCC 40 MG/ML VIAL IV SCH ×2 (11:57→20:05)
[2020-12-26 12:00] VITALS: BP 122/40
[2020-12-26 16:00] VITALS: BP 119/48
[2020-12-26] MEDS: ALBUTEROL 6.7GM HFA INHALER ORI SCH ×2 (16:01→21:30)
[2020-12-26] MEDS: ATORVASTATIN CALCIUM 20MG TABLET PO SCH (20:05)
[2020-12-26] MEDS: CARBAMAZEPINE 100MG TABLET CHEW PO SCH (20:05)
[2020-12-26] MEDS: PRIMIDONE 250 MG TABLET PO SCH (20:06)
[2020-12-26] MEDS: CARBAMAZEPINE 200MG TABLET PO SCH (20:10)
[2020-12-26 20:42] VITALS: BP 108/63
[2020-12-26 23:29] VITALS: BP 131/54
[2020-12-27] MEDS: METHYLPREDNISOLONE SOD SUCC 40 MG/ML VIAL IV SCH ×3 (02:27→20:12)
[2020-12-27] MEDS: ALBUTEROL (0.083%) 2.5MG/3ML NEB HHN SCH ×3 (03:53→12:47)
[2020-12-27] MEDS ORDERED: ALBUTEROL (0.083%) 2.5MG/3ML NEB ONE (03:57)
[2020-12-27 04:00] VITALS: BP 108/54
[2020-12-27 12:00] VITALS: BP 141/57
[2020-12-27] MEDS ORDERED: IPRATROPIUM/ALBUTEROL 0.5-3(2.5)MG/3ML NEB HHN PRN (14:30)
[2020-12-27 16:00] VITALS: BP 103/53
[2020-12-27 20:00] VITALS: BP 129/98
[2020-12-27] MEDS: PRIMIDONE 250 MG TABLET PO SCH (20:16)
[2020-12-27] MEDS: ATORVASTATIN CALCIUM 20MG TABLET PO SCH (20:16)
[2020-12-27] MEDS: CARBAMAZEPINE 100MG TABLET CHEW PO SCH (20:17)
[2020-12-27] MEDS: CARBAMAZEPINE 200MG TABLET PO SCH (20:18)
[2020-12-27] MEDS: BUDESONIDE 0.5MG/2ML NEB HHN SCH (20:34)
[2020-12-27] MEDS ORDERED: *PATIENT'S OWN MEDICATION STORAGE XX SCH (21:45)
[2020-12-27] MEDS: GUAIFENESIN-DM 200MG-20MG/10ML UDC PO PRN (22:08)
[2020-12-28] VITALS: BP 127/64
[2020-12-28] MEDS: ALBUTEROL (0.083%) 2.5MG/3ML NEB HHN SCH ×3 (02:39→13:37)
[2020-12-28] MEDS: METHYLPREDNISOLONE SOD SUCC 40 MG/ML VIAL IV SCH ×2 (02:40→11:48)
[2020-12-28 04:00] VITALS: BP 131/79
[2020-12-28] MEDS: BUDESONIDE 0.5MG/2ML NEB HHN SCH ×2 (04:44→13:37)
[2020-12-28 08:00] VITALS: BP 123/59
[2020-12-28] MEDS: GUAIFENESIN-DM 200MG-20MG/10ML UDC PO PRN (11:54)
[2020-12-28 12:00] VITALS: BP 115/49
[2020-12-28] MEDS ORDERED: P20 MT (13:18)
[2020-12-28 13:48] VITALS: BP 115/49
[2020-12-28 16:00] VITALS: BP 121/55
== END 2020-12-28 17:25 | disposition home or self-care (01) | DRG 140 ==
LOC: ER 19:02 → 7WST 23:29 → EDBEDREQSVC 23:36 → EDBEDREQTM 23:36 → ENRESERV 12-26 07:39 → 8WST 12-27 00:59
PROVIDERS: ADMIT Internal Medicine; ATTEND Internal Medicine
PROC: 5A09357 Assistance with Respiratory Ventilation, Less than 24 Consecutive Hours, Continuous Positive Airway Pressure (ICD-10-PCS; principal; 2020-12-25)
DX: J44.1 Chronic obstructive pulmonary disease with (acute) exacerbation (principal); J96.21 Acute and chronic respiratory failure with hypoxia; Z99.81 Dependence on supplemental oxygen; E11.9 Type 2 diabetes mellitus without complications; G40.909 Epilepsy, unspecified, not intractable, without status epilepticus; E78.00 Pure hypercholesterolemia, unspecified; E78.5 Hyperlipidemia, unspecified; I10 Essential (primary) hypertension; Z60.2 Problems related to living alone; Z20.822 Contact with and (suspected) exposure to COVID-19; F17.210 Nicotine dependence, cigarettes, uncomplicated; Z79.899 Other long term (current) drug therapy; Z71.6 Tobacco abuse counseling; Z86.15 Personal history of latent tuberculosis infection
CPT/HCPCS: 36415; 36600; 71045; 71275; 80053; 82375; 82805; 83880; 84484; 85025; 93005; 94640; 94660; 99291; J1956; J2920; J2930; J3370; J3475; J7626; Q9967; U0003

== ENCOUNTER 2021-02-22 13:12 | Inpatient (IN) | payer BC, MEDICAID ==
[~2021-02-22] VITALS: Ht 165.1 cm; Wt 64.9 kg
[~2021-02-22 13:12] MED LIST changes: +P20 MT
[2021-02-22] MEDS ORDERED: ALBUTEROL (0.083%) 2.5MG/3ML NEB HHN STA (14:22)
[2021-02-22] MEDS ORDERED: IPRATROPIUM BROMIDE (0.02%) 0.5MG/2.5ML NEB HHN STA (14:22)
[2021-02-22] MEDS ORDERED: METHYLPREDNISOLONE SOD SUCC 125 MG/2 ML VIAL IV STA (14:22)
[2021-02-22] MEDS ORDERED: IPRATROPIUM/ALBUTEROL 0.5-3(2.5)MG/3ML NEB ONE (14:54)
[2021-02-22 15:27] LABS: CHLORIDE 101 mEq/L (98-107)
[2021-02-22 15:55] LABS: BASOPHILS % 0.3 % (0.0-2.0); EOSINOPHILS % 1.7 % (0.0-5.0); HEMOGLOBIN. 12.6 g/dL (14.0-18.0); LYMPHOCYTES % 11.4 % (20.0-50.0); MEAN CORPUSCULAR HEMOGLOBIN 31.9 pg (28.0-32.0); MEAN CORPUSCULAR VOLUME 91.4 fL (80.0-94.0); MEAN PLATELET VOLUME 8.1 fl (7.4-10.4); MONOCYTES % 10.9 % (2.0-8.0); NEUTROPHILS % 75.7 % (40.0-76.0); PLATELET 273 x1000/uL (130-400); RED BLOOD CELL COUNT 3.93 mill/uL (4.7-6.1); RED CELL DISTRIBUTION WIDTH 15.2 % (11.6-14.6)
[2021-02-22] MEDS ORDERED: MORPHINE SULFATE 4 MG/ML CPJ (NOT FOR IM USE) IV NR (17:15)
[2021-02-22 21:25] VITALS: BP 111/79
[2021-02-22] MEDS ORDERED: IPRATROPIUM/ALBUTEROL 0.5-3(2.5)MG/3ML NEB HHN PRN (23:45)
[2021-02-23] VITALS: BP 104/55
[2021-02-23] MEDS ORDERED: DEXTROSE 50% WATER 50ML SYRINGE IV PRN (00:15)
[2021-02-23] MEDS ORDERED: RIFA300C4 MT (00:39)
[2021-02-23] MEDS ORDERED: ETHA400T30 MT (00:39)
[2021-02-23] MEDS: METHYLPREDNISOLONE SOD SUCC 40 MG/ML VIAL IV SCH ×3 (02:25→17:08)
[2021-02-23] MEDS: LEVOFLOXACIN 500MG TABLET PO SCH (02:26)
[2021-02-23 02:56] VITALS: BP 111/79
[2021-02-23 04:00] VITALS: BP 126/53
[2021-02-23] MEDS ORDERED: *PATIENT'S OWN MEDICATION STORAGE XX SCH (06:30)
[2021-02-23] MEDS: BLOOD SUGAR DIAGNOSTIC STRIP TEST SCH ×4 (07:30→21:48)
[2021-02-23] MEDS: INSULIN LISPRO 100 UNITS/ML SUBCUT SCH ×4 (07:50→22:09)
[2021-02-23 08:00] VITALS: BP 122/47
[2021-02-23] MEDS: IPRATROPIUM/ALBUTEROL 0.5-3(2.5)MG/3ML NEB HHN SCH ×4 (09:12→21:11)
[2021-02-23] MEDS: AMLODIPINE 10MG TABLET PO SCH (09:20)
[2021-02-23] MEDS: CARBAMAZEPINE 200MG TABLET PO SCH ×3 (09:21→17:09)
[2021-02-23] MEDS: ENOXAPARIN 40MG/0.4ML SYR SUBCUT SCH (09:21)
[2021-02-23] MEDS: DOCUSATE SODIUM 100MG CAPSULE PO SCH (09:21)
[2021-02-23] MEDS: LORATADINE 10MG TABLET PO SCH (09:22)
[2021-02-23 12:00] VITALS: BP 104/48
[2021-02-23 16:00] VITALS: BP 104/51
[2021-02-23] MEDS ORDERED: PRIM250T7 PO (16:14)
[2021-02-23] MEDS ORDERED: RIFA300C4 PO (16:14)
[2021-02-23] MEDS ORDERED: PRED10TA PO (16:17)
[2021-02-23] MEDS ORDERED: ATOR20TA65 PO (16:18)
[2021-02-23] MEDS ORDERED: CARB200T6 PO (16:19)
[2021-02-23] MEDS ORDERED: ZAFI10TA2 PO (16:20)
[2021-02-23] MEDS ORDERED: IBUP-2029 PO (16:20)
[2021-02-23] MEDS ORDERED: P20 PO ×2 (16:21→16:22)
[2021-02-23] MEDS: RIFAMPIN 300MG CAPSULE PO SCH (17:08)
[2021-02-23] MEDS: OMEPRAZOLE 20MG CAPSULE EXTENDED RELEASE PO SCH (17:09)
[2021-02-23] MEDS: ETHAMBUTOL HCL 400MG TABLET PO SCH (17:09)
[2021-02-23] MEDS: PRIMIDONE 250 MG TABLET PO SCH (17:09)
[2021-02-23 17:13] LABS: BG BASE EXCESS 6.5 mmol/L (-2.0-2.0); BG CARBOXYHEMOGLOBIN 0.1 % (0.5-1.5); BG DEOXYHEMOGLOBIN 1.3 % (0.0-5.0); BG FRACTION INSPIRED OXYGEN 32; BG HCO3 ACT 32.1 mmol/L (22.0-26.0); BG METHEMOGLOBIN 0.5 % (0.0-1.5); BG OXYGEN SATURATION 98.7 % (92.0-98.5); BG OXYHEMOGLOBIN 98.1 % (94.0-97.0); BG PCO2 50.9 mmHg (35.0-45.0); BG PH 7.418 (7.350-7.450); BG PO2 142.8 mmHg (75.0-100.0); BG SAMPLE SITE RIGHT RADIAL; BG VENT MODE NASAL CANNULA
[2021-02-23] MEDS ORDERED: PRIMIDONE 250 MG TABLET PO SCH (21:00)
[2021-02-23] MEDS: ATORVASTATIN CALCIUM 40MG TABLET PO SCH (21:59)
[2021-02-24] MEDS: IPRATROPIUM/ALBUTEROL 0.5-3(2.5)MG/3ML NEB HHN SCH ×6 (00:33→21:18)
[2021-02-24] MEDS: METHYLPREDNISOLONE SOD SUCC 40 MG/ML VIAL IV SCH ×3 (02:25→17:19)
[2021-02-24 04:00] VITALS: BP 106/52
[2021-02-24] MEDS: BLOOD SUGAR DIAGNOSTIC STRIP TEST SCH ×4 (06:42→21:50)
[2021-02-24] MEDS: OMEPRAZOLE 20MG CAPSULE EXTENDED RELEASE PO SCH (06:49)
[2021-02-24] MEDS: INSULIN LISPRO 100 UNITS/ML SUBCUT SCH ×4 (07:14→21:00)
[2021-02-24 08:00] VITALS: BP 110/60
[2021-02-24] MEDS: ENOXAPARIN 40MG/0.4ML SYR SUBCUT SCH (08:02)
[2021-02-24] MEDS: AMLODIPINE 10MG TABLET PO SCH (08:03)
[2021-02-24] MEDS: ETHAMBUTOL HCL 400MG TABLET PO SCH (08:03)
[2021-02-24] MEDS: LORATADINE 10MG TABLET PO SCH (08:03)
[2021-02-24] MEDS: CARBAMAZEPINE 200MG TABLET PO SCH ×3 (08:03→17:02)
[2021-02-24] MEDS: DOCUSATE SODIUM 100MG CAPSULE PO SCH (08:03)
[2021-02-24] MEDS: PRIMIDONE 250 MG TABLET PO SCH ×3 (08:03→17:02)
[2021-02-24] MEDS: RIFAMPIN 300MG CAPSULE PO SCH (08:09)
[2021-02-24] MEDS: LEVOFLOXACIN 500MG TABLET PO SCH (10:27)
[2021-02-24 20:00] VITALS: BP 124/55
[2021-02-24] MEDS: ATORVASTATIN CALCIUM 40MG TABLET PO SCH (21:49)
[2021-02-25] VITALS: BP 122/54
[2021-02-25] MEDS: IPRATROPIUM/ALBUTEROL 0.5-3(2.5)MG/3ML NEB HHN SCH ×6 (00:52→20:52)
[2021-02-25] MEDS: METHYLPREDNISOLONE SOD SUCC 40 MG/ML VIAL IV SCH ×3 (01:55→18:45)
[2021-02-25] MEDS: INSULIN LISPRO 100 UNITS/ML SUBCUT SCH ×4 (07:43→21:00)
[2021-02-25] MEDS: BLOOD SUGAR DIAGNOSTIC STRIP TEST SCH ×4 (07:43→21:57)
[2021-02-25] MEDS: ENOXAPARIN 40MG/0.4ML SYR SUBCUT SCH (07:58)
[2021-02-25] MEDS: DOCUSATE SODIUM 100MG CAPSULE PO SCH (07:58)
[2021-02-25] MEDS: OMEPRAZOLE 20MG CAPSULE EXTENDED RELEASE PO SCH (07:58)
[2021-02-25] MEDS: PRIMIDONE 250 MG TABLET PO SCH ×4 (07:58→22:00)
[2021-02-25] MEDS: LORATADINE 10MG TABLET PO SCH (07:58)
[2021-02-25] MEDS: CARBAMAZEPINE 200MG TABLET PO SCH ×4 (07:59→22:00)
[2021-02-25] MEDS: ETHAMBUTOL HCL 400MG TABLET PO SCH (07:59)
[2021-02-25 08:00] VITALS: BP 120/55
[2021-02-25] MEDS: RIFAMPIN 300MG CAPSULE PO SCH (08:01)
[2021-02-25] MEDS: AMLODIPINE 10MG TABLET PO SCH (08:01)
[2021-02-25] MEDS: LEVOFLOXACIN 500MG TABLET PO SCH (09:14)
[2021-02-25 12:00] VITALS: BP 122/50
[2021-02-25] MEDS ORDERED: LACTULOSE 20G/30ML UDC PO NR (12:30)
[2021-02-25] MEDS ORDERED: P20 MT (14:35)
[2021-02-25 16:00] VITALS: BP 121/50
[2021-02-25 20:00] VITALS: BP 137/67
[2021-02-25] MEDS: ATORVASTATIN CALCIUM 40MG TABLET PO SCH (22:01)
[2021-02-26] VITALS: BP 130/66
[2021-02-26] MEDS: IPRATROPIUM/ALBUTEROL 0.5-3(2.5)MG/3ML NEB HHN SCH ×4 (00:41→12:17)
[2021-02-26] MEDS: METHYLPREDNISOLONE SOD SUCC 40 MG/ML VIAL IV SCH ×2 (03:42→10:06)
[2021-02-26 04:00] VITALS: BP 111/50
[2021-02-26] MEDS: CARBAMAZEPINE 200MG TABLET PO SCH ×2 (06:49→14:48)
[2021-02-26] MEDS: BLOOD SUGAR DIAGNOSTIC STRIP TEST SCH ×2 (06:50→12:08)
[2021-02-26] MEDS: PRIMIDONE 250 MG TABLET PO SCH ×2 (06:50→14:49)
[2021-02-26] MEDS ORDERED: FAMOTIDINE 20MG TABLET PO SCH (07:20)
[2021-02-26 07:50] VITALS: BP 122/58
[2021-02-26] MEDS: INSULIN LISPRO 100 UNITS/ML SUBCUT SCH ×2 (07:50→12:09)
[2021-02-26] MEDS: LORATADINE 10MG TABLET PO SCH (08:53)
[2021-02-26] MEDS: AMLODIPINE 10MG TABLET PO SCH (08:53)
[2021-02-26] MEDS: RIFAMPIN 300MG CAPSULE PO SCH (08:53)
[2021-02-26] MEDS: DOCUSATE SODIUM 100MG CAPSULE PO SCH (08:53)
[2021-02-26] MEDS: ETHAMBUTOL HCL 400MG TABLET PO SCH (08:54)
[2021-02-26] MEDS: ENOXAPARIN 40MG/0.4ML SYR SUBCUT SCH (08:55)
[2021-02-26] MEDS: LEVOFLOXACIN 500MG TABLET PO SCH (10:09)
[2021-02-26 11:39] VITALS: BP 128/53
[2021-02-26 14:25] VITALS: BP 128/53
== END 2021-02-26 15:49 | disposition home or self-care (01) | DRG 140 ==
LOC: ER 13:12 → 6WST 20:16 → ENRESERV 20:57 → 6WST 23:44
PROVIDERS: ADMIT Internal Medicine; ATTEND Internal Medicine
DX: J44.1 Chronic obstructive pulmonary disease with (acute) exacerbation (principal); J96.21 Acute and chronic respiratory failure with hypoxia; Z99.81 Dependence on supplemental oxygen; D64.9 Anemia, unspecified; E11.9 Type 2 diabetes mellitus without complications; E78.00 Pure hypercholesterolemia, unspecified; E78.5 Hyperlipidemia, unspecified; G40.909 Epilepsy, unspecified, not intractable, without status epilepticus; I10 Essential (primary) hypertension; L90.5 Scar conditions and fibrosis of skin; Z86.11 Personal history of tuberculosis; Z87.891 Personal history of nicotine dependence; Z79.899 Other long term (current) drug therapy; Z22.7 Latent tuberculosis
CPT/HCPCS: 36415; 36600; 71045; 71250; 80053; 82375; 82378; 82805; 82962; 83036; 83880; 84484; 85025; 87070; 87102; 87116; 93005; 94640; 94644; 99291; C1893; J1650; J1815; J2270; J2920; J2930

== ENCOUNTER 2021-04-15 19:20 | Inpatient (IN) | payer MEDICAID ==
[~2021-04-15] VITALS: Ht 177.8 cm; Wt 64.0 kg
[~2021-04-15 19:20] MED LIST changes: -ALBU6.7H11 INH; -ATOR20TA65 MT; +ATOR20TA65 PO; -CARB200T PO; -CARB200T6 MT; +CARB200T6 PO; +ETHA400T8 MT; -FLUT15.844 BOTHNSTRLS; -FLUT1BLS INH; -LORA10TA7 MT; -METO-411 MT; -P20 PO; -PEG15DRO5 EACHEYE; -PULM50 HHN; +RIFA300C4 PO; +ZAFI10TA2 PO; -ZAFI20TA13 MT
[2021-04-15] MEDS ORDERED: MAGNESIUM 2 G PREMIX 50 ML IV STA (19:25)
[2021-04-15] MEDS ORDERED: IPRATROPIUM BROMIDE (0.02%) 0.5MG/2.5ML NEB HHN STA (19:25)
[2021-04-15] MEDS ORDERED: ALBUTEROL (0.083%) 2.5MG/3ML NEB HHN STA (19:25)
[2021-04-15] MEDS ORDERED: METHYLPREDNISOLONE SOD SUCC 125 MG/2 ML VIAL IV STA (19:25)
[2021-04-15] MEDS ORDERED: LEVOFLOXACIN 750MG PREMIX 150 ML IV ONE (19:30)
[2021-04-15 20:12] LABS: BASOPHILS % 0.7 % (0.0-2.0); EOSINOPHILS % 4.4 % (0.0-5.0); HEMATOCRIT. 36.4 % (42.0-52.0); HEMOGLOBIN. 12.3 g/dL (14.0-18.0); LYMPHOCYTES % 43.2 % (20.0-50.0); MEAN CORPUSCULAR HEMOGLOBIN 31.2 pg (28.0-32.0); MEAN CORPUSCULAR VOLUME 92.8 fL (80.0-94.0); MEAN PLATELET VOLUME 8.5 fl (7.4-10.4); MONOCYTES % 8.1 % (2.0-8.0); NEUTROPHILS % 43.6 % (40.0-76.0); PLATELET 202 x1000/uL (130-400); RED BLOOD CELL COUNT 3.93 mill/uL (4.7-6.1); RED CELL DISTRIBUTION WIDTH 15.5 % (11.6-14.6)
[2021-04-15 20:16] LABS: CHLORIDE 104 mEq/L (98-107)
[2021-04-15 20:20] LABS: PROTHROMBIN TIME 10.9 sec (9.6-11.0)
[2021-04-15 20:58] LABS: CLARITY URINE CLEAR (CLEAR); COLOR URINE YELLOW (YELLOW); KETONES URINE NEGATIVE (NEGATIVE); LEUKOCYTE ESTERASE URINE 3+ (NEGATIVE); NITRITE URINE NEGATIVE (NEGATIVE); OCCULT BLOOD URINE NEGATIVE (NEGATIVE); PROTEIN URINE NEGATIVE (NEGATIVE); SPECIFIC GRAVITY URINE 1.008 (1.005-1.030); UROBILINOGEN URINE 0.2 E.U./dL (0.2-1.0)
[2021-04-16] MEDS ORDERED: ACETAMINOPHEN 325MG TABLET PO PRN (08:45)
[2021-04-16] MEDS ORDERED: ONDANSETRON HCL 4MG/2ML INJ IV PRN (08:45)
[2021-04-16 10:00] VITALS: BP 115/45
[2021-04-16] MEDS ORDERED: BENZ5.1G (10:11)
[2021-04-16] MEDS ORDERED: BUDE6HFA INH (10:11)
[2021-04-16] MEDS ORDERED: FLUT15.844 BOTHNSTRLS (10:11)
[2021-04-16] MEDS: FAMOTIDINE 20MG TABLET PO SCH ×2 (10:37→20:33)
[2021-04-16] MEDS: METHYLPREDNISOLONE SOD SUCC 40 MG/ML VIAL IV SCH ×2 (10:37→17:04)
[2021-04-16] MEDS: CEFTRIAXONE 1,000 MG in DEXTROSE 5% WATER 50 ML IV SCH (11:29)
[2021-04-16] MEDS ORDERED: *PATIENT'S OWN MEDICATION STORAGE XX SCH (11:30)
[2021-04-16 12:00] VITALS: BP 117/47
[2021-04-16 14:00] VITALS: BP 114/46
[2021-04-16 16:00] VITALS: BP 114/47
[2021-04-16 18:00] VITALS: BP 118/52
[2021-04-16 20:00] VITALS: BP 105/56
[2021-04-16] MEDS: IPRATROPIUM/ALBUTEROL 0.5-3(2.5)MG/3ML NEB HHN SCH (21:12)
[2021-04-16] MEDS: CARBAMAZEPINE 100MG TABLET CHEW PO SCH (22:24)
[2021-04-17] VITALS: BP 116/50
[2021-04-17] MEDS: METHYLPREDNISOLONE SOD SUCC 40 MG/ML VIAL IV SCH ×3 (00:03→18:08)
[2021-04-17] MEDS: IPRATROPIUM/ALBUTEROL 0.5-3(2.5)MG/3ML NEB HHN SCH ×6 (01:18→21:10)
[2021-04-17 04:00] VITALS: BP 110/59
[2021-04-17 08:00] VITALS: BP 112/54
[2021-04-17] MEDS: FAMOTIDINE 20MG TABLET PO SCH ×2 (10:46→21:07)
[2021-04-17] MEDS: CARBAMAZEPINE 100MG TABLET CHEW PO SCH (10:46)
[2021-04-17] MEDS: CEFTRIAXONE 1,000 MG in DEXTROSE 5% WATER 50 ML IV SCH (10:46)
[2021-04-17 12:00] VITALS: BP 118/56
[2021-04-17] MEDS ORDERED: P20 MT (14:13)
[2021-04-17 16:00] VITALS: BP 120/59
[2021-04-17 20:00] VITALS: BP 111/54
== END 2021-04-17 22:20 | disposition left against medical advice (07) | DRG 140 ==
LOC: ER 19:20 → EDBEDREQTM 20:26 → EDBEDREQ 20:26 → EDBEDREQSVC 20:26 → EDBEDREQTM 21:26 → EDBEDREQSVC 21:26 → MICUSO 22:54 → 8WST 04-16 08:49
PROVIDERS: ADMIT Internal Medicine; ATTEND Internal Medicine
PROC: 5A09357 Assistance with Respiratory Ventilation, Less than 24 Consecutive Hours, Continuous Positive Airway Pressure (ICD-10-PCS; principal; 2021-04-15)
DX: J44.1 Chronic obstructive pulmonary disease with (acute) exacerbation (principal); J96.20 Acute and chronic respiratory failure, unspecified whether with hypoxia or hypercapnia; E44.1 Mild protein-calorie malnutrition; Z99.81 Dependence on supplemental oxygen; D64.9 Anemia, unspecified; E11.9 Type 2 diabetes mellitus without complications; E78.5 Hyperlipidemia, unspecified; G40.909 Epilepsy, unspecified, not intractable, without status epilepticus; J43.9 Emphysema, unspecified; N39.0 Urinary tract infection, site not specified; Z53.29 Procedure and treatment not carried out because of patient's decision for other reasons; I10 Essential (primary) hypertension; Z86.15 Personal history of latent tuberculosis infection; Z68.20 Body mass index [BMI] 20.0-20.9, adult; Z82.49 Family history of ischemic heart disease and other diseases of the circulatory system; Z20.822 Contact with and (suspected) exposure to COVID-19
CPT/HCPCS: 36415; 71045; 80053; 81003; 83605; 83880; 84145; 84484; 85025; 87426; 93005; 94640; 94660; 99291; J0696; J1956; J2920; J2930; J3475; J7040; J7060

== ENCOUNTER 2021-10-22 16:40 | Emergency (ER) | payer MEDICAID ==
[~2021-10-22] VITALS: Ht 165.1 cm; Wt 60.0 kg
[~2021-10-22 16:40] MED LIST changes: +AZIT250T12 MT; +BENZ5.1G; +BUDE6HFA INH; +ETHA400T30 MT; -ETHA400T8 MT; +FAMO-135 MT; +FLUT15.844 BOTHNSTRLS; -P20 MT; +PRED10TA23 MT
[2021-10-22] MEDS ORDERED: IPRATROPIUM BROMIDE (0.02%) 0.5MG/2.5ML NEB HHN STA (16:58)
[2021-10-22] MEDS ORDERED: ALBUTEROL (0.083%) 2.5MG/3ML NEB HHN STA (16:58)
[2021-10-22] MEDS ORDERED: METHYLPREDNISOLONE SOD SUCC 125 MG/2 ML VIAL IV STA (16:58)
[2021-10-22] MEDS ORDERED: LEVOFLOXACIN 750MG PREMIX 150 ML IV ONE (17:00)
[2021-10-22] MEDS ORDERED: NITROGLYCERIN OINT 1GM/INCH UDPKT TD NR (17:15)
[2021-10-22 17:52] LABS: BASOPHILS % 0.6 % (0.0-2.0); EOSINOPHILS % 3.3 % (0.0-5.0); HEMATOCRIT. 38.3 % (42.0-52.0); HEMOGLOBIN. 12.4 g/dL (14.0-18.0); LYMPHOCYTES % 29.8 % (20.0-50.0); MEAN CORPUSCULAR HEMOGLOBIN 31.5 pg (28.0-32.0); MEAN CORPUSCULAR VOLUME 97.1 fL (80.0-94.0); MEAN PLATELET VOLUME 8.2 fl (7.4-10.4); MONOCYTES % 8.6 % (2.0-8.0); NEUTROPHILS % 57.7 % (40.0-76.0); PLATELET 207 x1000/uL (130-400); RED BLOOD CELL COUNT 3.95 mill/uL (4.7-6.1); RED CELL DISTRIBUTION WIDTH 15.8 % (11.6-14.6)
[2021-10-22 18:00] LABS: CHLORIDE 104 mEq/L (98-107)
[2021-10-22] MEDS ORDERED: MORPHINE SULFATE 4 MG/ML CPJ (NOT FOR IM USE) IV ONE (19:15)
[2021-10-22 20:00] VITALS: BP 130/55
== END 2021-10-22 21:55 | disposition short-term general hospital (02) ==
LOC: ER 16:40
DX: J44.1 Chronic obstructive pulmonary disease with (acute) exacerbation (principal); Z20.822 Contact with and (suspected) exposure to COVID-19; Z79.899 Other long term (current) drug therapy; Z86.59 Personal history of other mental and behavioral disorders
CPT/HCPCS: 36415; 71045; 80053; 83605; 83880; 84484; 85025; 87040; 87426; 93005; 94640; 96365; 96375; 99285; J1956; J2930; Z7610

== ENCOUNTER 2021-11-13 18:15 | Emergency (ER) | payer MEDICAID ==
[~2021-11-13] VITALS: Ht 177.8 cm; Wt 68.0 kg
[2021-11-13] MEDS ORDERED: IPRATROPIUM BROMIDE (0.02%) 0.5MG/2.5ML NEB HHN STA (18:37)
[2021-11-13] MEDS ORDERED: METHYLPREDNISOLONE SOD SUCC 125 MG/2 ML VIAL IV STA (18:37)
[2021-11-13] MEDS ORDERED: ALBUTEROL (0.083%) 2.5MG/3ML NEB HHN STA (18:37)
[2021-11-13] MEDS ORDERED: MAGNESIUM 2 G PREMIX 50 ML IV ONE (18:45)
[2021-11-13] MEDS ORDERED: ASPIRIN 325MG EC TABLET PO ONE (19:00)
[2021-11-13 19:25] LABS: BASOPHILS % 0.9 % (0.0-2.0); EOSINOPHILS % 1.9 % (0.0-5.0); HEMOGLOBIN. 12.8 g/dL (14.0-18.0); LYMPHOCYTES % 16.6 % (20.0-50.0); MEAN CORPUSCULAR HEMOGLOBIN 31.8 pg (28.0-32.0); MEAN CORPUSCULAR VOLUME 94.5 fL (80.0-94.0); MEAN PLATELET VOLUME 8.2 fl (7.4-10.4); NEUTROPHILS % 70.6 % (40.0-76.0); PLATELET 224 x1000/uL (130-400); RED BLOOD CELL COUNT 4.02 mill/uL (4.7-6.1); RED CELL DISTRIBUTION WIDTH 14.7 % (11.6-14.6)
[2021-11-13 19:33] LABS: CHLORIDE 99 mEq/L (98-107)
[2021-11-13] MEDS ORDERED: IOHEXOL-300 100 ML BOTTLE ONE (21:39)
[2021-11-14 02:58] VITALS: BP 141/85
== END 2021-11-14 03:20 | disposition short-term general hospital (02) ==
LOC: ER 18:15
DX: J44.1 Chronic obstructive pulmonary disease with (acute) exacerbation (principal); R10.13 Epigastric pain; G40.909 Epilepsy, unspecified, not intractable, without status epilepticus; Z79.899 Other long term (current) drug therapy
CPT/HCPCS: 36415; 71045; 74177; 80053; 83690; 83880; 84484; 85025; 93005; 94640; 96365; 96375; 99291; J2930; J3475; Q9967; Z7610

== ENCOUNTER 2022-01-24 21:47 | Inpatient (IN) | payer MEDICAID ==
[~2022-01-24] VITALS: Ht 170.2 cm; Wt 53.5 kg
[~2022-01-24 21:47] MED LIST changes: +RIFA300C34 PO; -RIFA300C4 PO
[2022-01-24] MEDS ORDERED: METHYLPREDNISOLONE SOD SUCC 125 MG/2 ML VIAL IV STA (21:49)
[2022-01-24] MEDS ORDERED: IPRATROPIUM BROMIDE (0.02%) 0.5MG/2.5ML NEB HHN STA ×2 (21:49→23:11)
[2022-01-24] MEDS ORDERED: MAGNESIUM 2 G PREMIX 50 ML IV ONE (22:00)
[2022-01-24 22:22] LABS: BASOPHILS % 0.1 % (0.0-2.0); EOSINOPHILS % 0.3 % (0.0-5.0); HEMATOCRIT. 32.7 % (42.0-52.0); HEMOGLOBIN. 10.7 g/dL (14.0-18.0); LYMPHOCYTES % 19.8 % (20.0-50.0); MEAN CORPUSCULAR HEMOGLOBIN 29.7 pg (28.0-32.0); MEAN PLATELET VOLUME 7.5 fl (7.4-10.4); NEUTROPHILS % 73.8 % (40.0-76.0); PLATELET 375 x1000/uL (130-400); RED BLOOD CELL COUNT 3.59 mill/uL (4.7-6.1); RED CELL DISTRIBUTION WIDTH 15.1 % (11.6-14.6)
[2022-01-24 22:35] LABS: CHLORIDE 105 mEq/L (98-107)
[2022-01-24] MEDS: ALBUTEROL (0.083%) 2.5MG/3ML NEB HHN SCH ×2 (22:43→22:44)
[2022-01-24 22:52] LABS: INR 0.9; PROTHROMBIN TIME 9.8 sec (9.6-11.0)
[2022-01-24] MEDS ORDERED: TRAMADOL 50MG TABLET PO ONE (23:15)
[2022-01-24] MEDS ORDERED: PANTOPRAZOLE SODIUM 40 MG/VIAL IV ONE (23:15)
[2022-01-24] MEDS ORDERED: CARBAMAZEPINE 200MG TABLET PO ONE (23:15)
[2022-01-24] MEDS: PRIMIDONE 250 MG TABLET PO SCH (23:18)
[2022-01-24] MEDS ORDERED: ALBUTEROL (0.083%) 2.5MG/3ML NEB HHN SCH (23:30)
[2022-01-25] VITALS (9 sets, daily range): BP systolic 102–148; BP diastolic 31–76
[2022-01-25] MEDS ORDERED: ONDANSETRON HCL 4MG/2ML INJ IV ONE (03:45)
[2022-01-25] MEDS ORDERED: MORPHINE SULFATE 4 MG/ML CPJ (NOT FOR IM USE) IV ONE (03:45)
[2022-01-25] MEDS ORDERED: FAMOTIDINE 20MG/2ML VIAL IV ONE (03:45)
[2022-01-25] MEDS ORDERED: ONDANSETRON HCL 4MG/2ML INJ IV PRN (06:45)
[2022-01-25] MEDS ORDERED: ACETAMINOPHEN 325MG TABLET PO PRN (06:45)
[2022-01-25] MEDS ORDERED: HYDRALAZINE 20MG/ML VIAL IV PRN (06:45)
[2022-01-25] MEDS ORDERED: MAGNESIUM/ALUMINUM HYDROXIDE/SIMETHICONE 30ML UDC PO PRN (06:45)
[2022-01-25] MEDS ORDERED: GUAIFENESIN 200MG/10ML SUGAR FREE UDC PO PRN (06:45)
[2022-01-25] MEDS ORDERED: MORPHINE SULFATE 2 MG/ML CPJ (NOT FOR IM USE) IV PRN (06:45)
[2022-01-25] MEDS ORDERED: DOCUSATE SODIUM 100MG CAPSULE PO PRN (06:45)
[2022-01-25] MEDS ORDERED: CLONIDINE 0.1MG TABLET PO PRN (06:45)
[2022-01-25] MEDS ORDERED: IPRATROPIUM/ALBUTEROL 0.5-3(2.5)MG/3ML NEB HHN PRN (06:45)
[2022-01-25] MEDS: IPRATROPIUM/ALBUTEROL 0.5-3(2.5)MG/3ML NEB HHN SCH ×2 (10:18→22:02)
[2022-01-25] MEDS: ENOXAPARIN 40MG/0.4ML SYR SUBCUT SCH (10:31)
[2022-01-25] MEDS: CARBAMAZEPINE 100MG TABLET CHEW PO SCH (10:31)
[2022-01-25] MEDS: ETHAMBUTOL HCL 400MG TABLET PO SCH (10:31)
[2022-01-25] MEDS: SODIUM CHLORIDE 0.9% INJ 3ML FLUSH IVF SCH (13:10)
[2022-01-25] MEDS ORDERED: NALOXONE HCL 0.4MG/ML VIAL IV PRN (15:45)
[2022-01-25] MEDS: METHYLPREDNISOLONE SOD SUCC 40 MG/ML VIAL IV SCH (16:00)
[2022-01-25] MEDS: PRIMIDONE 250 MG TABLET PO SCH (20:42)
[2022-01-26] VITALS (12 sets, daily range): BP systolic 100–139; BP diastolic 46–72
[2022-01-26] MEDS: METHYLPREDNISOLONE SOD SUCC 40 MG/ML VIAL IV SCH ×2 (00:31→08:44)
[2022-01-26] MEDS: SODIUM CHLORIDE 0.9% INJ 3ML FLUSH IVF SCH ×4 (00:34→20:47)
[2022-01-26] MEDS: IPRATROPIUM/ALBUTEROL 0.5-3(2.5)MG/3ML NEB HHN SCH ×4 (03:52→20:14)
[2022-01-26 05:59] LABS: CHLORIDE 102 mEq/L (98-107)
[2022-01-26 06:20] LABS: BASOPHILS % 0.1 % (0.0-2.0); EOSINOPHILS % 0.2 % (0.0-5.0); HEMATOCRIT. 30.2 % (42.0-52.0); LYMPHOCYTES % 11.7 % (20.0-50.0); MEAN CORPUSCULAR HEMOGLOBIN 29.8 pg (28.0-32.0); MEAN CORPUSCULAR VOLUME 90.4 fL (80.0-94.0); MEAN PLATELET VOLUME 7.6 fl (7.4-10.4); MONOCYTES % 3.6 % (2.0-8.0); NEUTROPHILS % 84.4 % (40.0-76.0); PLATELET 315 x1000/uL (130-400); RED BLOOD CELL COUNT 3.34 mill/uL (4.7-6.1); RED CELL DISTRIBUTION WIDTH 14.9 % (11.6-14.6)
[2022-01-26] MEDS: CARBAMAZEPINE 100MG TABLET CHEW PO SCH (08:43)
[2022-01-26] MEDS: ETHAMBUTOL HCL 400MG TABLET PO SCH (08:44)
[2022-01-26] MEDS: ENOXAPARIN 40MG/0.4ML SYR SUBCUT SCH (08:45)
[2022-01-26] MEDS: HYDROCODONE/ACETAMINOPHEN 5/325MG TABLET PO PRN ×2 (15:00→20:54)
[2022-01-26] MEDS: PRIMIDONE 250 MG TABLET PO SCH (20:46)
[2022-01-26] MEDS: LORAZEPAM 2MG/ML CPJ IV PRN (20:54)
[2022-01-27] VITALS (12 sets, daily range): BP systolic 105–138; BP diastolic 49–77
[2022-01-27] MEDS: IPRATROPIUM/ALBUTEROL 0.5-3(2.5)MG/3ML NEB HHN SCH ×4 (01:27→20:32)
[2022-01-27] MEDS: SODIUM CHLORIDE 0.9% INJ 3ML FLUSH IVF SCH ×3 (05:02→21:14)
[2022-01-27] MEDS: ETHAMBUTOL HCL 400MG TABLET PO SCH (08:34)
[2022-01-27] MEDS: CARBAMAZEPINE 100MG TABLET CHEW PO SCH (08:35)
[2022-01-27] MEDS: ENOXAPARIN 40MG/0.4ML SYR SUBCUT SCH (08:36)
[2022-01-27] MEDS ORDERED: METHYLPREDNISOLONE SOD SUCC 40 MG/ML VIAL IV SCH (09:00)
[2022-01-27] MEDS: METHYLPREDNISOLONE SOD SUCC 40 MG/ML VIAL IV SCH (17:10)
[2022-01-27] MEDS: PANTOPRAZOLE 40MG DR TABLET PO SCH (17:10)
[2022-01-27] MEDS: PRIMIDONE 250 MG TABLET PO SCH (21:14)
[2022-01-27] MEDS: HYDROCODONE/ACETAMINOPHEN 5/325MG TABLET PO PRN (21:16)
[2022-01-28] VITALS (12 sets, daily range): BP systolic 107–175; BP diastolic 47–78
[2022-01-28] MEDS: METHYLPREDNISOLONE SOD SUCC 40 MG/ML VIAL IV SCH ×3 (00:49→21:20)
[2022-01-28] MEDS: IPRATROPIUM/ALBUTEROL 0.5-3(2.5)MG/3ML NEB HHN SCH ×4 (01:29→19:56)
[2022-01-28] MEDS: SODIUM CHLORIDE 0.9% INJ 3ML FLUSH IVF SCH ×3 (05:03→21:20)
[2022-01-28] MEDS: PANTOPRAZOLE 40MG DR TABLET PO SCH (08:05)
[2022-01-28] MEDS: CARBAMAZEPINE 100MG TABLET CHEW PO SCH (08:05)
[2022-01-28] MEDS: ETHAMBUTOL HCL 400MG TABLET PO SCH (08:05)
[2022-01-28] MEDS: ENOXAPARIN 40MG/0.4ML SYR SUBCUT SCH (08:06)
[2022-01-28] MEDS: HYDROCODONE/ACETAMINOPHEN 5/325MG TABLET PO PRN (08:08)
[2022-01-28] MEDS: LORAZEPAM 2MG/ML CPJ IV PRN (14:46)
[2022-01-28] MEDS: PRIMIDONE 250 MG TABLET PO SCH (21:20)
[2022-01-29] VITALS (12 sets, daily range): BP systolic 106–153; BP diastolic 53–72
[2022-01-29] MEDS: DIPHENHYDRAMINE 50MG/ML VIAL IV PRN ×2 (00:07→06:37)
[2022-01-29] MEDS: IPRATROPIUM/ALBUTEROL 0.5-3(2.5)MG/3ML NEB HHN SCH ×3 (02:31→19:53)
[2022-01-29] MEDS: PANTOPRAZOLE 40MG DR TABLET PO SCH (06:31)
[2022-01-29] MEDS: SODIUM CHLORIDE 0.9% INJ 3ML FLUSH IVF SCH ×3 (06:42→21:43)
[2022-01-29] MEDS: METHYLPREDNISOLONE SOD SUCC 40 MG/ML VIAL IV SCH (09:07)
[2022-01-29] MEDS: ETHAMBUTOL HCL 400MG TABLET PO SCH (09:07)
[2022-01-29] MEDS: CARBAMAZEPINE 100MG TABLET CHEW PO SCH (09:07)
[2022-01-29] MEDS: ENOXAPARIN 40MG/0.4ML SYR SUBCUT SCH (09:08)
[2022-01-29] MEDS: PRIMIDONE 250 MG TABLET PO SCH (21:34)
[2022-01-30] VITALS (8 sets, daily range): BP systolic 106–154; BP diastolic 45–86
[2022-01-30] MEDS: IPRATROPIUM/ALBUTEROL 0.5-3(2.5)MG/3ML NEB HHN SCH ×3 (01:38→15:04)
[2022-01-30] MEDS: LORAZEPAM 2MG/ML CPJ IV PRN (02:51)
[2022-01-30] MEDS: SODIUM CHLORIDE 0.9% INJ 3ML FLUSH IVF SCH ×2 (05:52→13:49)
[2022-01-30] MEDS: PANTOPRAZOLE 40MG DR TABLET PO SCH ×2 (05:53→10:55)
[2022-01-30] MEDS ORDERED: METHYLPREDNISOLONE SOD SUCC 40 MG/ML VIAL IV SCH (09:00)
[2022-01-30] MEDS: ENOXAPARIN 40MG/0.4ML SYR SUBCUT SCH (10:55)
[2022-01-30] MEDS: ETHAMBUTOL HCL 400MG TABLET PO SCH (10:56)
[2022-01-30] MEDS: CARBAMAZEPINE 100MG TABLET CHEW PO SCH (11:03)
[2022-01-31] MEDS ORDERED: PREDNISONE 20MG TABLET PO SCH (09:00)
== END 2022-01-30 16:38 | disposition home or self-care (01) | DRG 140 ==
LOC: ER 21:47 → 5EST 01-25 06:26 → ENRESERV 01-25 07:18 → 5EST 01-25 08:05 → ER 01-25 08:55
PROVIDERS: ADMIT Internal Medicine; ATTEND Internal Medicine
PROC: 5A09357 Assistance with Respiratory Ventilation, Less than 24 Consecutive Hours, Continuous Positive Airway Pressure (ICD-10-PCS; principal; 2022-01-24)
DX: J44.1 Chronic obstructive pulmonary disease with (acute) exacerbation (principal); J96.21 Acute and chronic respiratory failure with hypoxia; E44.1 Mild protein-calorie malnutrition; I50.22 Chronic systolic (congestive) heart failure; I11.0 Hypertensive heart disease with heart failure; G40.909 Epilepsy, unspecified, not intractable, without status epilepticus; E78.5 Hyperlipidemia, unspecified; E11.9 Type 2 diabetes mellitus without complications; F17.200 Nicotine dependence, unspecified, uncomplicated; Z20.822 Contact with and (suspected) exposure to COVID-19; R10.9 Unspecified abdominal pain; Z91.14 Patient's other noncompliance with medication regimen; Z79.899 Other long term (current) drug therapy; Z68.1 Body mass index [BMI] 19.9 or less, adult; Z99.81 Dependence on supplemental oxygen; Z86.15 Personal history of latent tuberculosis infection; Z79.51 Long term (current) use of inhaled steroids
CPT/HCPCS: 36415; 71045; 71250; 80053; 83880; 84484; 85025; 87426; 93005; 94640; 94660; 97110; 97162; 97166; 97530; 97535; 99291; C9113; C9803; J0360; J1200; J1650; J2060; J2270; J2405; J2920; J2930; J3475; J3490

== ENCOUNTER 2022-02-03 13:38 | Inpatient (IN) | payer MEDICAID ==
[~2022-02-03] VITALS: Ht 165.1 cm; Wt 49.9 kg
[~2022-02-03 13:38] MED LIST changes: -AZIT250T12 MT
[2022-02-03] MEDS ORDERED: IPRATROPIUM BROMIDE (0.02%) 0.5MG/2.5ML NEB HHN STA (13:56)
[2022-02-03] MEDS ORDERED: ALBUTEROL (0.083%) 2.5MG/3ML NEB HHN STA (13:56)
[2022-02-03] MEDS ORDERED: METHYLPREDNISOLONE SOD SUCC 125 MG/2 ML VIAL IV STA (13:56)
[2022-02-03] MEDS ORDERED: MAGNESIUM/ALUMINUM HYDROXIDE/SIMETHICONE 30ML UDC PO STA (14:39)
[2022-02-03 15:44] LABS: BASOPHILS % 0.4 % (0.0-2.0); EOSINOPHILS % 2.8 % (0.0-5.0); HEMOGLOBIN. 10.6 g/dL (14.0-18.0); LYMPHOCYTES % 29.1 % (20.0-50.0); MEAN CORPUSCULAR VOLUME 89.9 fL (80.0-94.0); MEAN PLATELET VOLUME 8.2 fl (7.4-10.4); MONOCYTES % 10.7 % (2.0-8.0); PLATELET 265 x1000/uL (130-400); RED BLOOD CELL COUNT 3.67 mill/uL (4.7-6.1); RED CELL DISTRIBUTION WIDTH 15.3 % (11.6-14.6)
[2022-02-03 15:51] LABS: CHLORIDE 99 mEq/L (98-107)
[2022-02-03] MEDS ORDERED: DICYCLOMINE 10 MG/5 ML ORAL SYR PO STA (16:35)
[2022-02-03] MEDS ORDERED: VISCOUS LIDOCAINE 2% 15 ML UDC PO STA (16:35)
[2022-02-04 00:30] VITALS: BP 131/55
[2022-02-04 04:00] VITALS: BP 123/54
[2022-02-04] MEDS ORDERED: CLONIDINE 0.1MG TABLET PO PRN (05:45)
[2022-02-04] MEDS ORDERED: IPRATROPIUM/ALBUTEROL 0.5-3(2.5)MG/3ML NEB HHN PRN (05:45)
[2022-02-04] MEDS: METHYLPREDNISOLONE SOD SUCC 40 MG/ML VIAL IV SCH ×3 (06:29→22:06)
[2022-02-04] MEDS: PANTOPRAZOLE 40MG DR TABLET PO SCH (06:29)
[2022-02-04 07:49] VITALS: BP 133/56
[2022-02-04] MEDS: ENOXAPARIN 40MG/0.4ML SYR SUBCUT SCH (08:34)
[2022-02-04] MEDS ORDERED: BUDESONIDE 0.25MG/2ML NEB HHN SCH (09:00)
[2022-02-04] MEDS ORDERED: ENOXAPARIN 30MG/0.3ML SYR SUBCUT SCH (09:00)
[2022-02-04 11:40] LABS: HEMATOCRIT. 32.2 % (42.0-52.0); HEMOGLOBIN. 10.4 g/dL (14.0-18.0); MEAN CORPUSCULAR HEMOGLOBIN 29.1 pg (28.0-32.0); MEAN CORPUSCULAR VOLUME 89.8 fL (80.0-94.0); MEAN PLATELET VOLUME 8.4 fl (7.4-10.4); PLATELET 279 x1000/uL (130-400); RED BLOOD CELL COUNT 3.58 mill/uL (4.7-6.1); RED CELL DISTRIBUTION WIDTH 15.4 % (11.6-14.6)
[2022-02-04 11:41] VITALS: BP 126/50
[2022-02-04 11:50] LABS: CHLORIDE 101 mEq/L (98-107)
[2022-02-04 13:15] LABS: PLATELET ESTIMATE NORMAL
[2022-02-04] MEDS: CARBAMAZEPINE 100MG TABLET CHEW PO SCH (13:29)
[2022-02-04] MEDS: MORPHINE SULFATE 2 MG/ML CPJ (NOT FOR IM USE) IV PRN (14:52)
[2022-02-04 15:57] VITALS: BP 138/59
[2022-02-04] MEDS: BUDESONIDE 0.5MG/2ML NEB HHN SCH (16:44)
[2022-02-04] MEDS: IPRATROPIUM/ALBUTEROL 0.5-3(2.5)MG/3ML NEB HHN SCH ×2 (16:44→21:07)
[2022-02-04] MEDS ORDERED: NALOXONE HCL 0.4MG/ML VIAL IV PRN (19:45)
[2022-02-04] MEDS: MONTELUKAST SODIUM 10MG TABLET PO SCH (21:50)
[2022-02-05] MEDS: IPRATROPIUM/ALBUTEROL 0.5-3(2.5)MG/3ML NEB HHN SCH ×3 (01:17→20:13)
[2022-02-05] MEDS: PANTOPRAZOLE 40MG DR TABLET PO SCH (06:49)
[2022-02-05] MEDS: METHYLPREDNISOLONE SOD SUCC 40 MG/ML VIAL IV SCH ×3 (06:49→20:53)
[2022-02-05 08:00] VITALS: BP 119/52
[2022-02-05] MEDS: BUDESONIDE 0.5MG/2ML NEB HHN SCH ×2 (08:44→20:14)
[2022-02-05] MEDS: CARBAMAZEPINE 100MG TABLET CHEW PO SCH (09:31)
[2022-02-05] MEDS: ENOXAPARIN 40MG/0.4ML SYR SUBCUT SCH (09:31)
[2022-02-05 10:36] LABS: BG BASE EXCESS 2.2 mmol/L (-2.0-2.0); BG CARBOXYHEMOGLOBIN 0.4 % (0.5-1.5); BG DEOXYHEMOGLOBIN 1.8 % (0.0-5.0); BG FRACTION INSPIRED OXYGEN 32; BG HCO3 ACT 27.9 mmol/L (22.0-26.0); BG METHEMOGLOBIN 0.3 % (0.0-1.5); BG OXYGEN SATURATION 98.2 % (92.0-98.5); BG OXYHEMOGLOBIN 97.5 % (94.0-97.0); BG PCO2 48.1 mmHg (35.0-45.0); BG PH 7.381 (7.350-7.450); BG PO2 106.4 mmHg (75.0-100.0); BG SAMPLE SITE LEFT BRACHIAL; BG TOTAL HEMOGLOBIN 11.3 g/dL (12.0-18.0); BG VENT MODE NASAL CANNULA
[2022-02-05 12:00] VITALS: BP 109/53
[2022-02-05] MEDS: MORPHINE SULFATE 2 MG/ML CPJ (NOT FOR IM USE) IV PRN (13:57)
[2022-02-05 16:00] VITALS: BP 116/51
[2022-02-05] MEDS: MONTELUKAST SODIUM 10MG TABLET PO SCH (17:35)
[2022-02-05 20:00] VITALS: BP 108/72
[2022-02-05] MEDS ORDERED: PRIMIDONE 250 MG TABLET PO SCH (21:00)
[2022-02-06] VITALS: BP 104/40
[2022-02-06] MEDS: MORPHINE SULFATE 2 MG/ML CPJ (NOT FOR IM USE) IV PRN ×2 (00:37→12:17)
[2022-02-06] MEDS: IPRATROPIUM/ALBUTEROL 0.5-3(2.5)MG/3ML NEB HHN SCH ×3 (02:14→15:41)
[2022-02-06 04:00] VITALS: BP 106/53
[2022-02-06] MEDS: METHYLPREDNISOLONE SOD SUCC 40 MG/ML VIAL IV SCH ×2 (05:37→14:25)
[2022-02-06] MEDS: PANTOPRAZOLE 40MG DR TABLET PO SCH (05:37)
[2022-02-06 07:10] LABS: BASOPHILS % 0.3 % (0.0-2.0); EOSINOPHILS % 0.4 % (0.0-5.0); HEMATOCRIT. 29.1 % (42.0-52.0); HEMOGLOBIN. 9.9 g/dL (14.0-18.0); LYMPHOCYTES % 16.2 % (20.0-50.0); MEAN CORPUSCULAR VOLUME 88.3 fL (80.0-94.0); MEAN PLATELET VOLUME 8.2 fl (7.4-10.4); MONOCYTES % 10.1 % (2.0-8.0); PLATELET 265 x1000/uL (130-400); RED CELL DISTRIBUTION WIDTH 15.3 % (11.6-14.6)
[2022-02-06 07:46] LABS: CHLORIDE 102 mEq/L (98-107)
[2022-02-06] MEDS: BUDESONIDE 0.5MG/2ML NEB HHN SCH (07:59)
[2022-02-06 08:00] VITALS: BP 148/54
[2022-02-06] MEDS: ENOXAPARIN 40MG/0.4ML SYR SUBCUT SCH (08:56)
[2022-02-06] MEDS: CARBAMAZEPINE 100MG TABLET CHEW PO SCH (08:57)
[2022-02-06 12:00] VITALS: BP 111/59
[2022-02-06] MEDS ORDERED: GUAIFENESIN 600MG ER TABLET PO SCH (12:15)
[2022-02-06] MEDS ORDERED: GUAI600T44 MT (12:23)
[2022-02-06] MEDS ORDERED: PANT40TA51 PO (12:23)
[2022-02-06] MEDS ORDERED: ALBU18HF2 IH (12:23)
[2022-02-06] MEDS ORDERED: P20 MT (12:23)
[2022-02-06 13:59] VITALS: BP 111/59
[2022-02-06] MEDS ORDERED: HYDR-4001 MT (14:36)
[2022-02-07] MEDS ORDERED: METHYLPREDNISOLONE SOD SUCC 40 MG/ML VIAL IV SCH (09:00)
== END 2022-02-06 16:15 | disposition home or self-care (01) | DRG 140 ==
LOC: ER 13:38 → EDBEDREQTM 16:37 → EDBEDREQ 16:37 → 8WST 18:47 → EDBEDREQTM 18:51 → EDBEDREQ 18:51 → ENRESERV 20:33
PROVIDERS: ADMIT Internal Medicine; ATTEND Internal Medicine
DX: J44.1 Chronic obstructive pulmonary disease with (acute) exacerbation (principal); J96.20 Acute and chronic respiratory failure, unspecified whether with hypoxia or hypercapnia; I50.22 Chronic systolic (congestive) heart failure; I11.0 Hypertensive heart disease with heart failure; Z99.81 Dependence on supplemental oxygen; E11.9 Type 2 diabetes mellitus without complications; E78.5 Hyperlipidemia, unspecified; K27.9 Peptic ulcer, site unspecified, unspecified as acute or chronic, without hemorrhage or perforation; Z20.822 Contact with and (suspected) exposure to COVID-19; G89.29 Other chronic pain; G40.909 Epilepsy, unspecified, not intractable, without status epilepticus; Z87.891 Personal history of nicotine dependence; Z79.51 Long term (current) use of inhaled steroids; Z79.2 Long term (current) use of antibiotics; Z79.899 Other long term (current) drug therapy
CPT/HCPCS: 36415; 36600; 71045; 76700; 80048; 80053; 82164; 82375; 82805; 83880; 84484; 85025; 87426; 93005; 94640; 94644; 99291; J1650; J2270; J2920; J2930; J7626

== ENCOUNTER 2022-02-14 00:25 | Inpatient (IN) | payer MEDICAID ==
[~2022-02-14] VITALS: Ht 175.3 cm; Wt 53.2 kg
[~2022-02-14 00:25] MED LIST changes: +ALBU18HF2 IH; -FAMO-135 MT; +GUAI600T44 MT; +HYDR-4001 MT; +P20 MT; +PANT40TA51 PO; -PRED10TA23 MT
[2022-02-14] MEDS ORDERED: IPRATROPIUM BROMIDE (0.02%) 0.5MG/2.5ML NEB HHN STA (00:37)
[2022-02-14] MEDS ORDERED: METHYLPREDNISOLONE SOD SUCC 125 MG/2 ML VIAL IV STA (00:37)
[2022-02-14] MEDS ORDERED: ALBUTEROL (0.083%) 2.5MG/3ML NEB HHN STA (00:37)
[2022-02-14 00:58] LABS: BASOPHILS % 0.6 % (0.0-2.0); EOSINOPHILS % 2.2 % (0.0-5.0); HEMATOCRIT. 29.5 % (42.0-52.0); HEMOGLOBIN. 9.7 g/dL (14.0-18.0); LYMPHOCYTES % 20.3 % (20.0-50.0); MEAN CORPUSCULAR HEMOGLOBIN 29.4 pg (28.0-32.0); MEAN CORPUSCULAR VOLUME 88.9 fL (80.0-94.0); MEAN PLATELET VOLUME 7.2 fl (7.4-10.4); MONOCYTES % 5.8 % (2.0-8.0); NEUTROPHILS % 71.1 % (40.0-76.0); PLATELET 301 x1000/uL (130-400); RED BLOOD CELL COUNT 3.32 mill/uL (4.7-6.1); RED CELL DISTRIBUTION WIDTH 15.2 % (11.6-14.6)
[2022-02-14 01:05] LABS: CHLORIDE 102 mEq/L (98-107)
[2022-02-14] MEDS ORDERED: ASPIRIN 325MG TABLET PO ONE (02:15)
[2022-02-14] MEDS ORDERED: CEFTRIAXONE 1 G PREMIX 50 ML IV ONE (02:15)
[2022-02-14] MEDS ORDERED: AZITHROMYCIN 500 MG in DEXT 5% WATER 250 ML IV SCH (02:15)
[2022-02-14 08:30] VITALS: BP 125/49
[2022-02-14] MEDS ORDERED: ACETAMINOPHEN 325MG TABLET PO PRN (08:45)
[2022-02-14] MEDS ORDERED: ONDANSETRON HCL 4MG/2ML INJ IV PRN (08:45)
[2022-02-14] MEDS ORDERED: KETOROLAC 30MG/ML VIAL IV PRN (11:45)
[2022-02-14 12:00] VITALS: BP 107/61
[2022-02-14] MEDS ORDERED: TRAMADOL 50MG TABLET PO PRN (12:00)
[2022-02-14] MEDS ORDERED: IPRATROPIUM/ALBUTEROL 0.5-3(2.5)MG/3ML NEB HHN SCH (12:00)
[2022-02-14] MEDS: METHYLPREDNISOLONE SOD SUCC 40 MG/ML VIAL IV SCH ×3 (12:37→21:24)
[2022-02-14] MEDS ORDERED: IPRATROPIUM/ALBUTEROL 0.5-3(2.5)MG/3ML NEB HHN PRN (13:00)
[2022-02-14] MEDS ORDERED: NALOXONE HCL 0.4MG/ML VIAL IV PRN (13:00)
[2022-02-14] MEDS: IPRATROPIUM/ALBUTEROL 0.5-3(2.5)MG/3ML NEB HHN SCH ×2 (15:10→20:00)
[2022-02-14 16:00] VITALS: BP 120/55
[2022-02-14] MEDS ORDERED: KETOROLAC 15MG/ML VIAL IV NR (16:45)
[2022-02-14] MEDS ORDERED: HYDROCODONE/ACETAMINOPHEN 5/325MG TABLET PO PRN (16:45)
[2022-02-14] MEDS ORDERED: MONTELUKAST SODIUM 10MG TABLET PO SCH (17:00)
[2022-02-14 20:00] VITALS: BP 133/58
[2022-02-14] MEDS ORDERED: MEDICATION NOT ON FORMULARY EA (Fluticasone Propionate 2 SPR) BOTHNSTRLS SCH (20:00)
[2022-02-14] MEDS ORDERED: PREDNISONE 20MG TABLET PO SCH (20:00)
[2022-02-14] MEDS ORDERED: ATORVASTATIN CALCIUM 20MG TABLET PO SCH (21:00)
[2022-02-14] MEDS: PRIMIDONE 250 MG TABLET PO SCH (21:22)
[2022-02-14] MEDS: CARBAMAZEPINE 100MG TABLET CHEW PO SCH (21:23)
[2022-02-14] MEDS: FLUTICASONE PROPIONATE 50MCG/SPRAY BOTTLE BOTHNSTRLS SCH (21:30)
[2022-02-15] VITALS: BP 116/56
[2022-02-15] MEDS: IPRATROPIUM/ALBUTEROL 0.5-3(2.5)MG/3ML NEB HHN SCH ×5 (00:39→16:06)
[2022-02-15 04:00] VITALS: BP 105/55
[2022-02-15] MEDS: METHYLPREDNISOLONE SOD SUCC 40 MG/ML VIAL IV SCH ×2 (05:25→13:15)
[2022-02-15 08:00] VITALS: BP 112/43
[2022-02-15] MEDS: PRIMIDONE 250 MG TABLET PO SCH ×2 (08:37→13:15)
[2022-02-15] MEDS: FLUTICASONE PROPIONATE 50MCG/SPRAY BOTTLE BOTHNSTRLS SCH (08:37)
[2022-02-15] MEDS: CARBAMAZEPINE 100MG TABLET CHEW PO SCH (08:38)
[2022-02-15] MEDS ORDERED: BUDESONIDE 0.5MG/2ML NEB HHN SCH (09:00)
[2022-02-15] MEDS ORDERED: MEDICATION NOT ON FORMULARY EA (Budesonide/Formoterol Fumarate (Symbicort 160/4.5 Mcg In INH SCH (09:00)
[2022-02-15] MEDS ORDERED: ZAFIRLUKAST 10 MG PO SCH (09:00)
[2022-02-15 12:00] VITALS: BP 100/45
[2022-02-15] MEDS ORDERED: SUCR1TAB MT (12:55)
[2022-02-15 15:05] VITALS: BP 100/45
== END 2022-02-15 16:55 | disposition home or self-care (01) | DRG 140 ==
LOC: ER 00:25 → 8WST 02:08 → ENRESERV 08:06
PROVIDERS: ADMIT Internal Medicine; ATTEND Internal Medicine
PROC: 5A09357 Assistance with Respiratory Ventilation, Less than 24 Consecutive Hours, Continuous Positive Airway Pressure (ICD-10-PCS; principal; 2022-02-14)
DX: J44.1 Chronic obstructive pulmonary disease with (acute) exacerbation (principal); J96.20 Acute and chronic respiratory failure, unspecified whether with hypoxia or hypercapnia; E44.0 Moderate protein-calorie malnutrition; I42.9 Cardiomyopathy, unspecified; Z20.822 Contact with and (suspected) exposure to COVID-19; I11.0 Hypertensive heart disease with heart failure; I50.22 Chronic systolic (congestive) heart failure; I25.10 Atherosclerotic heart disease of native coronary artery without angina pectoris; J45.909 Unspecified asthma, uncomplicated; D64.9 Anemia, unspecified; G40.909 Epilepsy, unspecified, not intractable, without status epilepticus; Z68.1 Body mass index [BMI] 19.9 or less, adult; Z87.891 Personal history of nicotine dependence; Z86.15 Personal history of latent tuberculosis infection; Z99.81 Dependence on supplemental oxygen
CPT/HCPCS: 36415; 71045; 80053; 83880; 84484; 85025; 87426; 93005; 94640; 94660; 99291; C9803; J0456; J0696; J1885; J2920; J2930; J7060; J7626

== ENCOUNTER 2022-05-27 02:09 | Inpatient (IN) | payer MEDICAID ==
[~2022-05-27] VITALS: Ht 167.6 cm; Wt 46.7 kg
[~2022-05-27 02:09] MED LIST changes: -BENZ5.1G; -ETHA400T30 MT; -IBUP-2029 PO; -RIFA300C34 PO; +SUCR1TAB MT
[2022-05-27] MEDS ORDERED: ALBUTEROL (0.083%) 2.5MG/3ML NEB HHN STA (02:47)
[2022-05-27] MEDS ORDERED: METHYLPREDNISOLONE SOD SUCC 125 MG/2 ML VIAL IV STA (02:47)
[2022-05-27] MEDS ORDERED: IPRATROPIUM BROMIDE (0.02%) 0.5MG/2.5ML NEB HHN STA (02:47)
[2022-05-27 02:55] LABS: HEMATOCRIT. 32.6 % (42.0-52.0); HEMOGLOBIN. 10.2 g/dL (14.0-18.0); MEAN CORPUSCULAR HEMOGLOBIN 25.8 pg (28.0-32.0); MEAN CORPUSCULAR VOLUME 82.5 fL (80.0-94.0); PLATELET 338 x1000/uL (130-400); RED BLOOD CELL COUNT 3.95 mill/uL (4.7-6.1); RED CELL DISTRIBUTION WIDTH 17.8 % (11.6-14.6)
[2022-05-27] MEDS ORDERED: ASPIRIN 81MG TABLET PO ONE (03:00)
[2022-05-27 03:03] LABS: CHLORIDE 100 mEq/L (98-107)
[2022-05-27 04:51] LABS: PLATELET ESTIMATE NORMAL
[2022-05-27 10:13] VITALS: BP 148/60
[2022-05-27] MEDS ORDERED: INDO-13 MT (10:47)
[2022-05-27 11:00] VITALS: BP 148/60
[2022-05-27] MEDS ORDERED: ONDANSETRON HCL 4MG/2ML INJ IV PRN (11:00)
[2022-05-27 12:00] VITALS: BP_SYST 129; BP_SYST 29; BP_DIAS 67
[2022-05-27] MEDS: SUCRALFATE 1 G/10 ML UDC PO SCH ×3 (12:15→20:57)
[2022-05-27] MEDS: OMEPRAZOLE 20MG CAPSULE EXTENDED RELEASE PO SCH (12:16)
[2022-05-27] MEDS: METHYLPREDNISOLONE SOD SUCC 40 MG/ML VIAL IV SCH ×2 (12:18→18:41)
[2022-05-27] MEDS: IPRATROPIUM/ALBUTEROL 0.5-3(2.5)MG/3ML NEB HHN SCH ×2 (13:51→21:04)
[2022-05-27 16:00] VITALS: BP 118/57
[2022-05-27 20:00] VITALS: BP 124/56
[2022-05-27] MEDS: PRIMIDONE 250 MG TABLET PO SCH (20:59)
[2022-05-27] MEDS: CARBAMAZEPINE 200MG TABLET PO SCH (21:01)
[2022-05-28 00:06] VITALS: BP 121/59
[2022-05-28] MEDS: IPRATROPIUM/ALBUTEROL 0.5-3(2.5)MG/3ML NEB HHN SCH ×5 (01:05→20:31)
[2022-05-28] MEDS: METHYLPREDNISOLONE SOD SUCC 40 MG/ML VIAL IV SCH ×3 (03:29→21:18)
[2022-05-28 03:57] VITALS: BP 123/66
[2022-05-28] MEDS: SUCRALFATE 1 G/10 ML UDC PO SCH ×4 (06:36→21:18)
[2022-05-28] MEDS: OMEPRAZOLE 20MG CAPSULE EXTENDED RELEASE PO SCH (06:36)
[2022-05-28 08:00] VITALS: BP 118/56
[2022-05-28 12:00] VITALS: BP 116/54
[2022-05-28] MEDS: ACETAMINOPHEN 325MG TABLET PO PRN (14:34)
[2022-05-28] MEDS ORDERED: MORPHINE SULFATE 2 MG/ML CPJ (NOT FOR IM USE) IV NR (14:45)
[2022-05-28 16:00] VITALS: BP 122/56
[2022-05-28] MEDS ORDERED: LACTULOSE 20G/30ML UDC PO NR (16:00)
[2022-05-28] MEDS: PANTOPRAZOLE SODIUM 40 MG/VIAL IV SCH (17:15)
[2022-05-28 20:00] VITALS: BP 120/56
[2022-05-28] MEDS: CARBAMAZEPINE 200MG TABLET PO SCH (21:18)
[2022-05-28] MEDS: PRIMIDONE 250 MG TABLET PO SCH (21:18)
[2022-05-29] VITALS: BP 112/60
[2022-05-29] MEDS: IPRATROPIUM/ALBUTEROL 0.5-3(2.5)MG/3ML NEB HHN SCH ×3 (01:43→15:59)
[2022-05-29 04:00] VITALS: BP 108/59
[2022-05-29] MEDS: METHYLPREDNISOLONE SOD SUCC 40 MG/ML VIAL IV SCH ×2 (06:23→14:57)
[2022-05-29 08:00] VITALS: BP 124/47
[2022-05-29 08:06] LABS: HEMATOCRIT 27.9 % (42.0-52.0); MEAN CORPUSCULAR HEMOGLOBIN 26.5 pg (28.0-32.0); MEAN CORPUSCULAR VOLUME 82.3 fL (80.0-94.0); PLATELET 346 x1000/uL (130-400); RED BLOOD CELL COUNT 3.39 mill/uL (4.7-6.1); RED CELL DISTRIBUTION WIDTH 17.4 % (11.6-14.6)
[2022-05-29 08:12] LABS: PROTHROMBIN TIME 10.5 sec (9.6-11.0)
[2022-05-29 08:24] LABS: CHLORIDE 99 mEq/L (98-107)
[2022-05-29] MEDS: PANTOPRAZOLE SODIUM 40 MG/VIAL IV SCH ×2 (09:25→17:32)
[2022-05-29 12:00] VITALS: BP 106/60
[2022-05-29] MEDS: SUCRALFATE 1 G/10 ML UDC PO SCH ×3 (12:20→17:32)
[2022-05-29] MEDS ORDERED: ONDANSETRON HCL 4MG/2ML INJ ONE (12:57)
[2022-05-29] MEDS ORDERED: DEXAMETHASONE 4MG/ML 1ML VIAL ONE (12:58)
[2022-05-29 16:45] VITALS: BP 122/54
[2022-05-29 16:50] VITALS: BP 122/54
[2022-05-29] MEDS: ACETAMINOPHEN 325MG TABLET PO PRN (17:32)
== END 2022-05-29 18:00 | disposition home or self-care (01) | DRG 140 ==
LOC: ER 02:31 → 6WST 05:05 → EDBEDREQTM 05:28 → EDBEDREQ 05:28
PROVIDERS: ADMIT Internal Medicine; ATTEND Internal Medicine
PROC: 0DB78ZX Excision of Stomach, Pylorus, Via Natural or Artificial Opening Endoscopic, Diagnostic (ICD-10-PCS; principal; 2022-05-29)
DX: J44.1 Chronic obstructive pulmonary disease with (acute) exacerbation (principal); J96.01 Acute respiratory failure with hypoxia; E43 Unspecified severe protein-calorie malnutrition; K29.70 Gastritis, unspecified, without bleeding; I42.9 Cardiomyopathy, unspecified; E87.1 Hypo-osmolality and hyponatremia; I50.9 Heart failure, unspecified; D64.9 Anemia, unspecified; I11.0 Hypertensive heart disease with heart failure; Z20.822 Contact with and (suspected) exposure to COVID-19; G40.909 Epilepsy, unspecified, not intractable, without status epilepticus; K21.9 Gastro-esophageal reflux disease without esophagitis; K27.9 Peptic ulcer, site unspecified, unspecified as acute or chronic, without hemorrhage or perforation; Z79.899 Other long term (current) drug therapy; Z68.1 Body mass index [BMI] 19.9 or less, adult; Z87.11 Personal history of peptic ulcer disease; Z99.81 Dependence on supplemental oxygen; Z82.49 Family history of ischemic heart disease and other diseases of the circulatory system
CPT/HCPCS: 36415; 71045; 80053; 82962; 83880; 84484; 85025; 85027; 87426; 93005; 94640; 94644; 94664; 99285; C9113; J1100; J2270; J2405; J2920; J2930

== ENCOUNTER 2022-06-08 19:38 | Inpatient (IN) | payer MEDICAID ==
[~2022-06-08] VITALS: Ht 162.6 cm; Wt 46.3 kg
[2022-06-08 20:15] LABS: BG BASE EXCESS 1.1 mmol/L (-2.0-2.0); BG CARBOXYHEMOGLOBIN 0.1 % (0.5-1.5); BG DEOXYHEMOGLOBIN 1.3 % (0.0-5.0); BG FRACTION INSPIRED OXYGEN 40; BG HCO3 ACT 25.9 mmol/L (22.0-26.0); BG METHEMOGLOBIN 0.3 % (0.0-1.5); BG OXYGEN SATURATION 98.7 % (92.0-98.5); BG OXYHEMOGLOBIN 98.3 % (94.0-97.0); BG PCO2 42.2 mmHg (35.0-45.0); BG PH 7.406 (7.350-7.450); BG PO2 143.5 mmHg (75.0-100.0); BG SAMPLE SITE RIGHT RADIAL; BG VENT MODE COOL AEROSOL
[2022-06-08] MEDS ORDERED: DILTIAZEM HCL 5MG/ML 5ML VIAL IV NR (20:15)
[2022-06-08 20:23] LABS: CHLORIDE 98 mEq/L (98-107)
[2022-06-08 20:24] LABS: BASOPHILS % 0.3 % (0.0-2.0); EOSINOPHILS % 1.3 % (0.0-5.0); HEMATOCRIT. 33.2 % (42.0-52.0); HEMOGLOBIN. 10.9 g/dL (14.0-18.0); LYMPHOCYTES % 16.8 % (20.0-50.0); MEAN CORPUSCULAR HEMOGLOBIN 26.6 pg (28.0-32.0); MEAN PLATELET VOLUME 7.9 fl (7.4-10.4); MONOCYTES % 7.6 % (2.0-8.0); PLATELET 427 x1000/uL (130-400); RED CELL DISTRIBUTION WIDTH 17.8 % (11.6-14.6)
[2022-06-08 20:30] LABS: PROTHROMBIN TIME 10.8 sec (9.6-11.0)
[2022-06-08] MEDS ORDERED: CEFTRIAXONE 1 G PREMIX 50 ML IV NR (21:25)
[2022-06-08] MEDS ORDERED: DOXYCYCLINE 100MG in DEXTROSE 5% WATER 100ML IV NR (21:25)
[2022-06-08] MEDS ORDERED: DOXYCYCLINE HYCLATE 100 MG/VIAL IV ONE (21:30)
[2022-06-08] MEDS ORDERED: ASPIRIN 325MG TABLET PO ONE (23:15)
[2022-06-09] VITALS (7 sets, daily range): BP systolic 101–143; BP diastolic 50–72
[2022-06-09] MEDS ORDERED: ASPIRIN 325MG TABLET PO NR (03:15)
[2022-06-09] MEDS ORDERED: MORPHINE SULFATE 2 MG/ML CPJ (NOT FOR IM USE) IV ONE (03:45)
[2022-06-09] MEDS ORDERED: MORPHINE SULFATE 2 MG/ML CPJ (NOT FOR IM USE) IV NR (04:15)
[2022-06-09] MEDS ORDERED: PREDNISONE 20MG TABLET PO SCH (09:00)
[2022-06-09 09:01] LABS: HEMATOCRIT 34.1 % (42.0-52.0); HEMOGLOBIN 10.8 g/dL (14.0-18.0); MEAN CORPUSCULAR HEMOGLOBIN 25.7 pg (28.0-32.0); MEAN CORPUSCULAR VOLUME 81.4 fL (80.0-94.0); PLATELET 392 x1000/uL (130-400); RED BLOOD CELL COUNT 4.19 mill/uL (4.7-6.1); RED CELL DISTRIBUTION WIDTH 17.9 % (11.6-14.6)
[2022-06-09 09:09] LABS: CHLORIDE 98 mEq/L (98-107)
[2022-06-09 09:23] LABS: CREATINE KINASE 62 IU/L (39-308); PHOSPHORUS 4.4 mg/dL (2.5-4.9)
[2022-06-09 09:23] LABS: BG BASE EXCESS 0.8 mmol/L (-2.0-2.0); BG CARBOXYHEMOGLOBIN 0.4 % (0.5-1.5); BG DEOXYHEMOGLOBIN 1.5 % (0.0-5.0); BG FRACTION INSPIRED OXYGEN 40; BG HCO3 ACT 27.8 mmol/L (22.0-26.0); BG METHEMOGLOBIN 0.4 % (0.0-1.5); BG OXYGEN SATURATION 98.5 % (92.0-98.5); BG OXYHEMOGLOBIN 97.7 % (94.0-97.0); BG PCO2 56.3 mmHg (35.0-45.0); BG PH 7.311 (7.350-7.450); BG PO2 127.2 mmHg (75.0-100.0); BG SAMPLE SITE RIGHT RADIAL; BG TOTAL RESPIRATORY RATE 22 b/min; BG VENT MODE MASK - BIPAP
[2022-06-09] MEDS ORDERED: IPRATROPIUM/ALBUTEROL 0.5-3(2.5)MG/3ML NEB HHN PRN (09:30)
[2022-06-09] MEDS ORDERED: METHYLPREDNISOLONE SOD SUCC 40 MG/ML VIAL IV SCH (10:00)
[2022-06-09] MEDS ORDERED: IPRATROPIUM/ALBUTEROL 0.5-3(2.5)MG/3ML NEB HHN SCH (10:00)
[2022-06-09] MEDS ORDERED: NALOXONE HCL 0.4MG/ML VIAL IV PRN (11:15)
[2022-06-09] MEDS: HYDROCODONE/ACETAMINOPHEN 5/325MG TABLET PO PRN ×2 (11:19→20:44)
[2022-06-09] MEDS ORDERED: DOCUSATE SODIUM 100MG CAPSULE PO PRN (11:30)
[2022-06-09] MEDS: PANTOPRAZOLE 40MG DR TABLET PO SCH (12:06)
[2022-06-09] MEDS: ENOXAPARIN 40MG/0.4ML SYR SUBCUT SCH (12:06)
[2022-06-09] MEDS: SUCRALFATE 1G TABLET PO SCH ×3 (12:10→20:44)
[2022-06-09] MEDS ORDERED: SODIUM POLYSTYRENE SULFONATE 15 G/60 ML BOT PO NR (12:15)
[2022-06-09] MEDS ORDERED: HYDRALAZINE 20MG/ML VIAL IV PRN (12:15)
[2022-06-09] MEDS: IPRATROPIUM/ALBUTEROL 0.5-3(2.5)MG/3ML NEB HHN SCH ×3 (12:22→20:32)
[2022-06-09] MEDS ORDERED: MORPHINE SULFATE 4 MG/ML CPJ (NOT FOR IM USE) IV PRN (13:00)
[2022-06-09] MEDS: PIPERACILLIN/TAZOBACTAM 3.375 G in DEXTROSE 5% WATER 50 ML IV SCH ×2 (14:27→21:45)
[2022-06-09 14:43] LABS: BG BASE EXCESS 1.6 mmol/L (-2.0-2.0); BG CARBOXYHEMOGLOBIN 0.3 % (0.5-1.5); BG FRACTION INSPIRED OXYGEN 30; BG HCO3 ACT 27.5 mmol/L (22.0-26.0); BG METHEMOGLOBIN 0.3 % (0.0-1.5); BG OXYHEMOGLOBIN 95.4 % (94.0-97.0); BG PH 7.367 (7.350-7.450); BG PO2 86.2 mmHg (75.0-100.0); BG SAMPLE SITE RIGHT BRACHIAL; BG TOTAL HEMOGLOBIN 10.8 g/dL (12.0-18.0); BG TOTAL RESPIRATORY RATE 21 b/min; BG VENT MODE MASK - BIPAP
[2022-06-09] MEDS ORDERED: VANCOMYCIN 1.25GM PMX (XELLIA) 250 ML IV SCH (15:00)
[2022-06-09] MEDS ORDERED: MAGNESIUM/ALUMINUM HYDROXIDE/SIMETHICONE 30ML UDC PO PRN (18:30)
[2022-06-09] MEDS: PRIMIDONE 250 MG TABLET PO SCH (18:38)
[2022-06-09] MEDS: CARBAMAZEPINE 100MG TABLET CHEW PO SCH (18:39)
[2022-06-09] MEDS: BUDESONIDE 0.5MG/2ML NEB HHN SCH (20:32)
[2022-06-09] MEDS: ATORVASTATIN CALCIUM 20MG TABLET PO SCH (20:44)
[2022-06-10] VITALS (12 sets, daily range): BP systolic 93–154; BP diastolic 46–74
[2022-06-10] MEDS: IPRATROPIUM/ALBUTEROL 0.5-3(2.5)MG/3ML NEB HHN SCH ×6 (00:33→20:59)
[2022-06-10] MEDS: PIPERACILLIN/TAZOBACTAM 3.375 G in DEXTROSE 5% WATER 50 ML IV SCH ×3 (06:03→22:00)
[2022-06-10 06:17] LABS: BASOPHILS % 0.2 % (0.0-2.0); EOSINOPHILS % 0.9 % (0.0-5.0); HEMATOCRIT. 24.9 % (42.0-52.0); HEMOGLOBIN. 8.1 g/dL (14.0-18.0); LYMPHOCYTES % 8.4 % (20.0-50.0); MEAN CORPUSCULAR HEMOGLOBIN 26.1 pg (28.0-32.0); MEAN CORPUSCULAR VOLUME 79.9 fL (80.0-94.0); MONOCYTES % 6.3 % (2.0-8.0); NEUTROPHILS % 84.2 % (40.0-76.0); PLATELET 321 x1000/uL (130-400); RED BLOOD CELL COUNT 3.12 mill/uL (4.7-6.1); RED CELL DISTRIBUTION WIDTH 17.5 % (11.6-14.6)
[2022-06-10] MEDS: PANTOPRAZOLE 40MG DR TABLET PO SCH (06:58)
[2022-06-10] MEDS: SUCRALFATE 1G TABLET PO SCH ×4 (06:58→22:00)
[2022-06-10 08:07] LABS: BG BASE EXCESS 8.2 mmol/L (-2.0-2.0); BG CARBOXYHEMOGLOBIN 0.2 % (0.5-1.5); BG DEOXYHEMOGLOBIN 0.8 % (0.0-5.0); BG FRACTION INSPIRED OXYGEN 36; BG HCO3 ACT 34.1 mmol/L (22.0-26.0); BG METHEMOGLOBIN 0.3 % (0.0-1.5); BG OXYGEN SATURATION 99.2 % (92.0-98.5); BG OXYHEMOGLOBIN 98.7 % (94.0-97.0); BG PCO2 55.5 mmHg (35.0-45.0); BG PH 7.406 (7.350-7.450); BG PO2 151.4 mmHg (75.0-100.0); BG SAMPLE SITE LEFT RADIAL; BG TOTAL HEMOGLOBIN 9.1 g/dL (12.0-18.0); BG VENT MODE NASAL CANNULA
[2022-06-10] MEDS: DOCUSATE SODIUM 250MG CAPSULE PO SCH (08:21)
[2022-06-10] MEDS: PRIMIDONE 250 MG TABLET PO SCH ×3 (08:21→17:35)
[2022-06-10] MEDS: CARBAMAZEPINE 100MG TABLET CHEW PO SCH (08:21)
[2022-06-10] MEDS: BUDESONIDE 0.5MG/2ML NEB HHN SCH ×2 (08:58→20:59)
[2022-06-10] MEDS ORDERED: VANCOMYCIN 1GM PMX (XELLIA) 200 ML IV SCH (09:00)
[2022-06-10] MEDS ORDERED: PREDNISONE 20MG TABLET PO SCH (09:00)
[2022-06-10] MEDS: ENOXAPARIN 40MG/0.4ML SYR SUBCUT SCH (12:08)
[2022-06-10] MEDS ORDERED: HYDR-4001 MT (16:05)
[2022-06-10] MEDS: PREDNISONE 20MG TABLET PO SCH (17:35)
[2022-06-10] MEDS: ATORVASTATIN CALCIUM 20MG TABLET PO SCH (22:00)
[2022-06-11] VITALS (12 sets, daily range): BP systolic 103–163; BP diastolic 37–78
[2022-06-11] MEDS: IPRATROPIUM/ALBUTEROL 0.5-3(2.5)MG/3ML NEB HHN SCH ×5 (00:53→21:21)
[2022-06-11] MEDS: PIPERACILLIN/TAZOBACTAM 3.375 G in DEXTROSE 5% WATER 50 ML IV SCH ×3 (06:04→21:22)
[2022-06-11 06:14] LABS: CHLORIDE 102 mEq/L (98-107)
[2022-06-11 07:06] LABS: HEMOGLOBIN 7.9 g/dL (14.0-18.0); MEAN CORPUSCULAR HEMOGLOBIN 26.5 pg (28.0-32.0); MEAN CORPUSCULAR VOLUME 80.5 fL (80.0-94.0); PLATELET 314 x1000/uL (130-400); RED BLOOD CELL COUNT 2.99 mill/uL (4.7-6.1); RED CELL DISTRIBUTION WIDTH 17.6 % (11.6-14.6)
[2022-06-11] MEDS ORDERED: VANCOMYCIN 750MG PREMIX 150 ML IV SCH (08:00)
[2022-06-11] MEDS ORDERED: HYDR-4001 MT (08:53)
[2022-06-11] MEDS: DOCUSATE SODIUM 250MG CAPSULE PO SCH (09:17)
[2022-06-11] MEDS: PANTOPRAZOLE 40MG DR TABLET PO SCH (09:17)
[2022-06-11] MEDS: SUCRALFATE 1G TABLET PO SCH ×4 (09:17→21:16)
[2022-06-11] MEDS: PRIMIDONE 250 MG TABLET PO SCH ×3 (09:17→16:51)
[2022-06-11] MEDS: PREDNISONE 20MG TABLET PO SCH ×2 (09:18→16:51)
[2022-06-11] MEDS: CARBAMAZEPINE 100MG TABLET CHEW PO SCH (09:42)
[2022-06-11] MEDS: BUDESONIDE 0.5MG/2ML NEB HHN SCH ×2 (11:34→21:51)
[2022-06-11] MEDS: ENOXAPARIN 40MG/0.4ML SYR SUBCUT SCH (13:08)
[2022-06-11] MEDS: VANCOMYCIN 750MG PMX (XELLIA) 150 ML IV SCH (21:15)
[2022-06-11] MEDS: ATORVASTATIN CALCIUM 20MG TABLET PO SCH (21:16)
[2022-06-12] VITALS (7 sets, daily range): BP systolic 119–148; BP diastolic 54–77
[2022-06-12] MEDS: IPRATROPIUM/ALBUTEROL 0.5-3(2.5)MG/3ML NEB HHN SCH ×6 (01:01→21:26)
[2022-06-12] MEDS: SUCRALFATE 1G TABLET PO SCH ×5 (06:34→21:48)
[2022-06-12] MEDS: PIPERACILLIN/TAZOBACTAM 3.375 G in DEXTROSE 5% WATER 50 ML IV SCH ×3 (06:34→21:48)
[2022-06-12] MEDS: PANTOPRAZOLE 40MG DR TABLET PO SCH (06:34)
[2022-06-12 08:03] LABS: CHLORIDE 105 mEq/L (98-107)
[2022-06-12] MEDS: DOCUSATE SODIUM 250MG CAPSULE PO SCH (08:30)
[2022-06-12] MEDS: PREDNISONE 20MG TABLET PO SCH ×2 (08:30→17:48)
[2022-06-12] MEDS: CARBAMAZEPINE 100MG TABLET CHEW PO SCH (08:31)
[2022-06-12] MEDS: PRIMIDONE 250 MG TABLET PO SCH ×3 (08:31→17:48)
[2022-06-12] MEDS: VANCOMYCIN 750MG PMX (XELLIA) 150 ML IV SCH ×2 (08:32→21:48)
[2022-06-12] MEDS: BUDESONIDE 0.5MG/2ML NEB HHN SCH ×2 (09:42→21:26)
[2022-06-12 12:29] LABS: HEMATOCRIT 26.8 % (42.0-52.0); HEMOGLOBIN 8.6 g/dL (14.0-18.0); MEAN CORPUSCULAR HEMOGLOBIN 25.9 pg (28.0-32.0); PLATELET 322 x1000/uL (130-400); RED BLOOD CELL COUNT 3.31 mill/uL (4.7-6.1); RED CELL DISTRIBUTION WIDTH 17.9 % (11.6-14.6)
[2022-06-12] MEDS: ENOXAPARIN 40MG/0.4ML SYR SUBCUT SCH (13:56)
[2022-06-12] MEDS: ATORVASTATIN CALCIUM 20MG TABLET PO SCH ×2 (21:00→21:48)
[2022-06-13] VITALS (8 sets, daily range): BP systolic 122–165; BP diastolic 57–78
[2022-06-13] MEDS: IPRATROPIUM/ALBUTEROL 0.5-3(2.5)MG/3ML NEB HHN SCH ×6 (00:20→20:11)
[2022-06-13] MEDS: PIPERACILLIN/TAZOBACTAM 3.375 G in DEXTROSE 5% WATER 50 ML IV SCH ×3 (05:05→22:39)
[2022-06-13 06:22] LABS: HEMATOCRIT 27.4 % (42.0-52.0); HEMOGLOBIN 8.8 g/dL (14.0-18.0); MEAN CORPUSCULAR HEMOGLOBIN 26.5 pg (28.0-32.0); MEAN CORPUSCULAR VOLUME 81.9 fL (80.0-94.0); PLATELET 310 x1000/uL (130-400); RED BLOOD CELL COUNT 3.34 mill/uL (4.7-6.1); RED CELL DISTRIBUTION WIDTH 17.9 % (11.6-14.6)
[2022-06-13 06:37] LABS: CHLORIDE 105 mEq/L (98-107)
[2022-06-13] MEDS: PREDNISONE 20MG TABLET PO SCH ×2 (09:25→16:36)
[2022-06-13] MEDS: PRIMIDONE 250 MG TABLET PO SCH ×3 (09:25→19:05)
[2022-06-13] MEDS: SUCRALFATE 1G TABLET PO SCH ×4 (09:25→20:35)
[2022-06-13] MEDS: DOCUSATE SODIUM 250MG CAPSULE PO SCH (09:25)
[2022-06-13] MEDS: PANTOPRAZOLE 40MG DR TABLET PO SCH (09:25)
[2022-06-13] MEDS: VANCOMYCIN 750MG PMX (XELLIA) 150 ML IV SCH ×2 (09:26→20:35)
[2022-06-13] MEDS: CARBAMAZEPINE 100MG TABLET CHEW PO SCH (09:26)
[2022-06-13] MEDS: ENOXAPARIN 40MG/0.4ML SYR SUBCUT SCH (16:36)
[2022-06-13] MEDS: ATORVASTATIN CALCIUM 20MG TABLET PO SCH (20:35)
[2022-06-13] MEDS: HYDROCODONE/ACETAMINOPHEN 5/325MG TABLET PO PRN (20:59)
[2022-06-14] VITALS (14 sets, daily range): BP systolic 117–148; BP diastolic 49–73
[2022-06-14] MEDS: IPRATROPIUM/ALBUTEROL 0.5-3(2.5)MG/3ML NEB HHN SCH ×6 (00:14→20:00)
[2022-06-14] MEDS: PIPERACILLIN/TAZOBACTAM 3.375 G in DEXTROSE 5% WATER 50 ML IV SCH ×2 (05:10→15:20)
[2022-06-14] MEDS: CARBAMAZEPINE 100MG TABLET CHEW PO SCH (08:17)
[2022-06-14] MEDS: PRIMIDONE 250 MG TABLET PO SCH ×3 (08:17→16:57)
[2022-06-14] MEDS: SUCRALFATE 1G TABLET PO SCH ×4 (08:17→20:38)
[2022-06-14] MEDS: DOCUSATE SODIUM 250MG CAPSULE PO SCH (08:17)
[2022-06-14] MEDS: PANTOPRAZOLE 40MG DR TABLET PO SCH (08:17)
[2022-06-14] MEDS: PREDNISONE 20MG TABLET PO SCH ×2 (08:17→16:57)
[2022-06-14] MEDS: VANCOMYCIN 750MG PMX (XELLIA) 150 ML IV SCH ×2 (08:17→20:38)
[2022-06-14] MEDS: ENOXAPARIN 40MG/0.4ML SYR SUBCUT SCH (12:17)
[2022-06-14] MEDS: ATORVASTATIN CALCIUM 20MG TABLET PO SCH (20:38)
[2022-06-15] VITALS (10 sets, daily range): BP systolic 123–151; BP diastolic 54–78
[2022-06-15] MEDS: IPRATROPIUM/ALBUTEROL 0.5-3(2.5)MG/3ML NEB HHN SCH ×6 (04:40→20:02)
[2022-06-15] MEDS: PANTOPRAZOLE 40MG DR TABLET PO SCH (08:43)
[2022-06-15] MEDS: PREDNISONE 20MG TABLET PO SCH ×2 (08:43→18:10)
[2022-06-15] MEDS: PRIMIDONE 250 MG TABLET PO SCH ×3 (08:43→20:48)
[2022-06-15] MEDS: DOCUSATE SODIUM 250MG CAPSULE PO SCH (08:43)
[2022-06-15] MEDS: SUCRALFATE 1G TABLET PO SCH ×4 (08:43→20:48)
[2022-06-15] MEDS: CARBAMAZEPINE 100MG TABLET CHEW PO SCH (08:47)
[2022-06-15 09:02] LABS: CHLORIDE 102 mEq/L (98-107)
[2022-06-15 09:20] LABS: HEMATOCRIT 31.3 % (42.0-52.0); HEMOGLOBIN 9.9 g/dL (14.0-18.0); MEAN CORPUSCULAR HEMOGLOBIN 25.9 pg (28.0-32.0); MEAN CORPUSCULAR VOLUME 81.8 fL (80.0-94.0); PLATELET 375 x1000/uL (130-400); RED BLOOD CELL COUNT 3.83 mill/uL (4.7-6.1); RED CELL DISTRIBUTION WIDTH 17.9 % (11.6-14.6)
[2022-06-15] MEDS: ENOXAPARIN 40MG/0.4ML SYR SUBCUT SCH (12:52)
[2022-06-15] MEDS: ATORVASTATIN CALCIUM 20MG TABLET PO SCH (20:47)
[2022-06-16] VITALS (7 sets, daily range): BP systolic 120–149; BP diastolic 52–80
[2022-06-16] MEDS: IPRATROPIUM/ALBUTEROL 0.5-3(2.5)MG/3ML NEB HHN SCH ×5 (00:41→15:14)
[2022-06-16] MEDS: PRIMIDONE 250 MG TABLET PO SCH ×2 (06:15→13:37)
[2022-06-16 06:35] LABS: HEMATOCRIT 30.2 % (42.0-52.0); HEMOGLOBIN 9.7 g/dL (14.0-18.0); MEAN CORPUSCULAR HEMOGLOBIN 26.4 pg (28.0-32.0); MEAN CORPUSCULAR VOLUME 82.1 fL (80.0-94.0); PLATELET 334 x1000/uL (130-400); RED BLOOD CELL COUNT 3.67 mill/uL (4.7-6.1); RED CELL DISTRIBUTION WIDTH 17.8 % (11.6-14.6)
[2022-06-16 07:51] LABS: CHLORIDE 103 mEq/L (98-107)
[2022-06-16] MEDS: CARBAMAZEPINE 100MG TABLET CHEW PO SCH (09:14)
[2022-06-16] MEDS: SUCRALFATE 1G TABLET PO SCH ×3 (09:14→17:12)
[2022-06-16] MEDS: DOCUSATE SODIUM 250MG CAPSULE PO SCH (09:14)
[2022-06-16] MEDS: PREDNISONE 20MG TABLET PO SCH ×2 (09:14→17:12)
[2022-06-16] MEDS: PANTOPRAZOLE 40MG DR TABLET PO SCH (09:14)
[2022-06-16] MEDS: ENOXAPARIN 40MG/0.4ML SYR SUBCUT SCH (11:57)
== END 2022-06-16 23:47 | disposition home or self-care (01) | DRG 720 ==
LOC: ER 19:38 → MICUSO 23:16 → EDBEDREQ 23:22 → EDBEDREQTM 23:22 → EDBEDREQSVC 23:22 → 5EST 06-09 10:03
PROVIDERS: ADMIT Internal Medicine; ATTEND Internal Medicine
PROC: 5A09357 Assistance with Respiratory Ventilation, Less than 24 Consecutive Hours, Continuous Positive Airway Pressure (ICD-10-PCS; principal; 2022-06-08)
PROC: 5A09357 Assistance with Respiratory Ventilation, Less than 24 Consecutive Hours, Continuous Positive Airway Pressure (ICD-10-PCS; 2022-06-09)
PROC: 5A09357 Assistance with Respiratory Ventilation, Less than 24 Consecutive Hours, Continuous Positive Airway Pressure (ICD-10-PCS; 2022-06-12)
PROC: 5A09357 Assistance with Respiratory Ventilation, Less than 24 Consecutive Hours, Continuous Positive Airway Pressure (ICD-10-PCS; 2022-06-13)
DX: A41.9 Sepsis, unspecified organism (principal); J96.21 Acute and chronic respiratory failure with hypoxia; I21.3 ST elevation (STEMI) myocardial infarction of unspecified site; J18.9 Pneumonia, unspecified organism; Z99.81 Dependence on supplemental oxygen; I48.91 Unspecified atrial fibrillation; J44.0 Chronic obstructive pulmonary disease with (acute) lower respiratory infection; J44.1 Chronic obstructive pulmonary disease with (acute) exacerbation; E87.5 Hyperkalemia; I10 Essential (primary) hypertension; R65.20 Severe sepsis without septic shock; Z20.822 Contact with and (suspected) exposure to COVID-19; G40.909 Epilepsy, unspecified, not intractable, without status epilepticus; K29.70 Gastritis, unspecified, without bleeding; E78.5 Hyperlipidemia, unspecified; D64.9 Anemia, unspecified; K21.9 Gastro-esophageal reflux disease without esophagitis; Z82.49 Family history of ischemic heart disease and other diseases of the circulatory system; Z79.899 Other long term (current) drug therapy
CPT/HCPCS: 36415; 36600; 71045; 80048; 80053; 80061; 80202; 82375; 82550; 82805; 83605; 83735; 83880; 84100; 84145; 84443; 84484; 85025; 85027; 87426; 94640; 94660; 99291; C9803; J0696; J1650; J2270; J2543; J2920; J3370; J3490; J7060; J7512; J7626